=== PATIENT | male | born 1960 | race Caucasian/White ===

== ENCOUNTER → 2018-04-29 09:58 | Outpatient (CLI) | payer MEDICARE, SELFPAY ==
[2018-04-29 11:32] LABS: Hemoglobin A1C% w Est Avg Glu 7.1 % (4.0-6.0); INR 1.1 (0.9-1.3); Prothrombin Time 11.9 SECONDS (10.1-12.7)
[2018-04-29 11:33] LABS: Add Manual Diff / Slide Review NO; Basophils Percent Auto 0.7 % (0-2); Eosinophils Percent Auto 2.4 % (2-4); Hematocrit 45.1 % (41-53); Hemoglobin 15.8 g/dL (13.5-17.5); Lymphocytes Percent Auto 17.6 % (25-40); Mean Corpuscular HGB Conc 35.1 % (30-36); Mean Corpuscular Hemoglobin 36.2 PG (26-34); Mean Corpuscular Volume 103.3 fL (80-100); Monocytes Percent Auto 10.4 % (3-14); Neutrophils Absolute Auto 4500 /uL (3000-5900); Neutrophils Percent Auto 68.9 % (50-75); Platelet Count 235 X10^3/uL (150-400); Red Blood Cell Count 4.37 X10^6/uL (4.5-5.9); Red Cell Distribution Width 13.1 % (11.6-14.8); White Blood Cell Count 6.6 X10^3/uL (4.5-11.0)
[2018-04-29 11:38] LABS: Alanine Aminotransferase 75 IU/L (21-72); Albumin 4.4 g/dL (3.5-5.0); Albumin Globulin Ratio 1.4 (1.0-2.8); Alkaline Phosphatase 113 U/L (38-126); Aspartate Aminotransferase 67 IU/L (17-59); BUN Creatinine Ratio 23.3 (6-22); Bilirubin Total 0.5 mg/dL (0.2-1.3); Blood Urea Nitrogen 14 mg/dL (9-20); Calcium 10.2 mg/dL (8.4-10.2); Carbon Dioxide 33 mmol/L (22-32); Chloride 102 mmol/L (98-107); Estimated Glomerular Filt Rate > 60.0 mL/min (>60); Globulin 3.1 g/dL (1.7-4.1); Glucose 137 mg/dL (70-100); HEMOLYSIS < 15 (0-50); Potassium 4.2 mmol/L (3.4-5.1); Sodium 143 mmol/L (137-145); Total Protein 7.5 g/dL (6.3-8.2)
== END ==
PROVIDERS: PCP Family Medicine; Visit Provider Family Medicine
DX: E11.9 Type 2 diabetes mellitus without complications (principal); F10.20 Alcohol dependence, uncomplicated
CPT/HCPCS: 36415; 80053; 83036; 85025; 85610

== ENCOUNTER → 2018-07-28 11:32 | Outpatient (CLI) | payer MEDICARE, MEDICAID, SELFPAY ==
[2018-07-28 12:59] LABS: Hemoglobin A1C% w Est Avg Glu 6.5 % (4.0-6.0)
[2018-07-28 13:11] LABS: Alanine Aminotransferase 56 IU/L (21-72); Albumin 4.2 g/dL (3.5-5.0); Albumin Globulin Ratio 1.5 (1.0-2.8); Alkaline Phosphatase 93 U/L (38-126); Aspartate Aminotransferase 56 IU/L (17-59); BUN Creatinine Ratio 25.7 (6-22); Bilirubin Total 0.6 mg/dL (0.2-1.3); Blood Urea Nitrogen 18 mg/dL (9-20); Calcium 10.4 mg/dL (8.4-10.2); Carbon Dioxide 32 mmol/L (22-32); Chloride 104 mmol/L (98-107); Estimated Glomerular Filt Rate > 60.0 mL/min (>60); Globulin 2.8 g/dL (1.7-4.1); Glucose 200 mg/dL (80-110); HEMOLYSIS < 15 (0-50); Sodium 147 mmol/L (137-145)
[2018-07-28 13:15] LABS: Potassium 5.5 mmol/L (3.4-5.1)
[2018-07-28 13:22] LABS: Creatinine Urine Random 202.4 mg/dL
[2018-07-28 13:26] LABS: Microalbumi Creatinin Ratio Ur 10.3 ug/mg CR (<30); Microalbumin Urine Random 2.1 mg/dL (0-1.6)
== END ==
PROVIDERS: Visit Provider Family Medicine
DX: E11.9 Type 2 diabetes mellitus without complications (principal)
CPT/HCPCS: 36415; 80053; 82043; 82570; 83036

== ENCOUNTER → 2018-08-04 11:02 | Outpatient (CLI) | payer MEDICARE, MEDICAID, SELFPAY ==
[2018-08-04 12:19] LABS: BUN Creatinine Ratio 24.3 (6-22); Blood Urea Nitrogen 17 mg/dL (9-20); Calcium 9.6 mg/dL (8.4-10.2); Carbon Dioxide 32 mmol/L (22-32); Chloride 102 mmol/L (98-107); Estimated Glomerular Filt Rate > 60.0 mL/min (>60); Glucose 210 mg/dL (80-110); HEMOLYSIS < 15 (0-50); Potassium 4.6 mmol/L (3.4-5.1); Sodium 141 mmol/L (137-145)
== END ==
PROVIDERS: Visit Provider Family Medicine
DX: E11.9 Type 2 diabetes mellitus without complications (principal); I10 Essential (primary) hypertension
CPT/HCPCS: 36415; 80048

== ENCOUNTER → 2019-02-09 11:10 | Outpatient (CLI) | payer MEDICARE, SELFPAY ==
[2019-02-09 11:59] LABS: Add Manual Diff / Slide Review NO; Basophils Absolute Auto 0 /uL (0-100); Basophils Percent Auto 0.7 % (0-2); Eosinophils Absolute Auto 100 /uL (0-450); Eosinophils Percent Auto 1.8 % (2-4); Hematocrit 46.3 % (41-53); Hemoglobin 15.8 g/dL (13.5-17.5); Lymphocytes Absolute Auto 1200 /uL (1100-4500); Lymphocytes Percent Auto 20.6 % (25-40); Mean Corpuscular Hemoglobin 34.5 PG (26-34); Mean Corpuscular Volume 101.3 fL (80-100); Monocytes Absolute Auto 500 /uL (0-900); Monocytes Percent Auto 9.1 % (3-14); Neutrophils Absolute Auto 3800 /uL (1500-7000); Neutrophils Percent Auto 67.8 % (50-75); Platelet Count 245 X10^3/uL (150-400); Red Blood Cell Count 4.57 X10^6/uL (4.5-5.9); Red Cell Distribution Width 13.2 % (11.6-14.8); White Blood Cell Count 5.7 X10^3/uL (4.5-11.0)
[2019-02-09 12:00] LABS: INR 1.1 (0.9-1.3); Prothrombin Time 12.2 SECONDS (10.1-12.7)
[2019-02-09 12:03] LABS: Hemoglobin A1C% w Est Avg Glu 7.1 % (4.0-6.0)
[2019-02-09 12:52] LABS: Creatinine Urine Random 293.6 mg/dL
[2019-02-09 12:57] LABS: Microalbumi Creatinin Ratio Ur 10.2 ug/mg CR (<30)
[2019-02-09 12:59] LABS: Alanine Aminotransferase 44 IU/L (21-72); Albumin 4.2 g/dL (3.5-5.0); Albumin Globulin Ratio 1.4 (1.0-2.8); Alkaline Phosphatase 109 U/L (38-126); Aspartate Aminotransferase 45 IU/L (17-59); BUN Creatinine Ratio 18.6 (6-22); Bilirubin Total 0.4 mg/dL (0.2-1.3); Blood Urea Nitrogen 13 mg/dL (9-20); Calcium 9.9 mg/dL (8.4-10.2); Carbon Dioxide 31 mmol/L (22-32); Chloride 102 mmol/L (98-107); Cholesterol 214 mg/dL (140-199); Estimated Glomerular Filt Rate > 60.0 mL/min (>60); Glucose 165 mg/dL (80-110); HDL Cholesterol 70 mg/dL (40-60); HEMOLYSIS < 15 (0-50); LDL Cholesterol Calculated 117 mg/dL (<100); Potassium 5.1 mmol/L (3.4-5.1); Sodium 140 mmol/L (137-145); Total Protein 7.2 g/dL (6.3-8.2); Triglycerides 137 mg/dL (35-150)
== END ==
PROVIDERS: PCP Family Medicine; Visit Provider Family Medicine
DX: R14.0 Abdominal distension (gaseous) (principal); E11.9 Type 2 diabetes mellitus without complications; E78.5 Hyperlipidemia, unspecified; I10 Essential (primary) hypertension; J44.9 Chronic obstructive pulmonary disease, unspecified
CPT/HCPCS: 36415; 80053; 80061; 82043; 82570; 83036; 85025; 85610

== ENCOUNTER → 2019-02-17 09:37 | Outpatient (CLI) | payer MEDICARE, SELFPAY ==
--- NOTE | 2019-02-17 09:40 | DI.US.S_ITS ---
PROCEDURE: US ABDOMEN COMPLETE INDICATIONS: ABDOMINAL DISTENTION TECHNIQUE: Real-time scanning was performed of the abdominal and retroperitoneal organs, with image documentation. COMPARISON: [facility], CR, ABDOMEN 2 VIEW, 04/23/2016, 10:47. [facility], CT, KIDNEY/ URETER/BLADDER, 06/09/2014, 7:51. [facility], US, ABDOMEN LIMITED, 02/08/2016, 14:00. FINDINGS: Liver: The liver demonstrates normal size. The liver demonstrates generalized increased echogenicity. This decreases ultrasound sensitivity for detection of hepatic masses. Gallbladder: There is a 5-6 mm non-mobile stone seen within the gallbladder neck. The gallbladder wall is not thickened, measuring 3 mm or less. No specific pericholecystic fluid is seen. The sonographic Martinez sign is negative. Biliary ducts: Intrahepatic bile ducts are non-dilated. Extrahepatic bile duct caliber measures 6.7 mm. Normal is 6-7 mm or less in diameter, or 10 mm or less post-cholecystectomy. Pancreas: Not seen, obscured by overlying bowel gas. Spleen: Spleen is normal in size and homogeneous in echotexture. Kidneys: Kidneys are normal in size and echotexture. Right kidney measures 12 cm long; left kidney measures 12 cm long. No hydronephrosis or nephrolithiasis. No solid masses. Aorta: Not seen, obscured by overlying bowel gas. Iliacs: Not seen, obscured by overlying bowel gas. IVC: Intrahepatic inferior vena cava is patent. Miscellaneous: No free abdominal fluid. Study limited by bowel gas. IMPRESSION: Non-mobile gallstone seen within the gallbladder neck, without additional sonographic signs of cholecystitis. Please correlate with physical examination findings, patient presentation, and laboratory values. No biliary dilatation is seen. The liver demonstrates increased echogenicity. This finding is nonspecific, yet it is most commonly attributed to fatty infiltration. Dictated by: Zaki Camacho M.D. on 02/17/2019 at 11:57 Approved by: Zaki Camacho M.D. on 02/17/2019 at 11:58
== END ==
PROVIDERS: PCP Family Medicine; Visit Provider Family Medicine
DX: R14.0 Abdominal distension (gaseous) (principal); K80.20 Calculus of gallbladder without cholecystitis without obstruction
CPT/HCPCS: 76700

== ENCOUNTER → 2019-05-19 10:17 | Outpatient (CLI) | payer MEDICARE, SELFPAY ==
[2019-05-19 11:18] LABS: Hemoglobin A1C% w Est Avg Glu 6.8 % (4.0-6.0)
== END ==
PROVIDERS: PCP Family Medicine; Visit Provider Family Medicine
DX: E11.9 Type 2 diabetes mellitus without complications (principal)
CPT/HCPCS: 36415; 83036

== ENCOUNTER → 2019-11-10 11:58 | Outpatient (CLI) | payer MEDICARE, MEDICAID, SELFPAY ==
[2019-11-10 12:28] LABS: Hemoglobin A1C% w Est Avg Glu 6.7 % (4.0-6.0)
[2019-11-10 12:32] LABS: BUN Creatinine Ratio 42.9 (6-22); Blood Urea Nitrogen 30 mg/dL (9-20); Calcium 9.7 mg/dL (8.4-10.2); Carbon Dioxide 27 mmol/L (22-32); Chloride 102 mmol/L (98-107); Estimated Glomerular Filt Rate > 60.0 mL/min (>60); Glucose 131 mg/dL (80-110); HEMOLYSIS < 15 (0-50); Potassium 4.8 mmol/L (3.4-5.1); Sodium 142 mmol/L (137-145)
== END ==
PROVIDERS: PCP Family Medicine; Visit Provider Family Medicine
DX: E11.9 Type 2 diabetes mellitus without complications (principal)
CPT/HCPCS: 36415; 80048; 83036

== ENCOUNTER → 2019-11-17 10:34 | Outpatient (CLI) | payer MEDICARE, SELFPAY ==
--- NOTE | 2019-11-17 10:36 | DI.RAD.S_ITS ---
PROCEDURE: XR CHEST 2V INDICATIONS: COPD exacerbation TECHNIQUE: 2 views of the chest were acquired. COMPARISON: [facility], , ABDOMEN 2 VIEW, 04/23/2016, 10:47. [facility], , CHEST 2 VIEW, 12/29/2014, 15:48. FINDINGS: Surgical changes and devices: None. Lungs and pleura: Ill-defined patchy consolidative opacities project in the retrocardiac region left lung base. No pleural effusions or pneumothorax. Mediastinum: Mediastinal contours are normal. Heart size is normal. Bones and chest wall: No suspicious bony abnormalities. Soft tissues appear unremarkable. IMPRESSION: Ill-defined left basilar patchy consolidative opacity suggestive of aspiration and/or pneumonia.Recommend radiographic followup to document resolution after treatment to exclude abnormal soft tissue. Dictated by: Allen Osorio M.D. on 11/17/2019 at 14:11 Approved by: Allen Osorio M.D. on 11/17/2019 at 14:13
[2019-11-17 11:55] LABS: Add Manual Diff / Slide Review NO; Basophils Absolute Auto 0 /uL (0-100); Basophils Percent Auto 0.1 % (0-2); Eosinophils Absolute Auto 0 /uL (0-450); Eosinophils Percent Auto 0.3 % (2-4); Hematocrit 43.4 % (41-53); Hemoglobin 15.1 g/dL (13.5-17.5); Lymphocytes Absolute Auto 900 /uL (1100-4500); Lymphocytes Percent Auto 7.6 % (25-40); Mean Corpuscular HGB Conc 34.8 % (30-36); Mean Corpuscular Hemoglobin 35.2 PG (26-34); Mean Corpuscular Volume 101.3 fL (80-100); Monocytes Absolute Auto 800 /uL (0-900); Monocytes Percent Auto 6.9 % (3-14); Neutrophils Absolute Auto 9700 /uL (1500-7000); Neutrophils Percent Auto 85.1 % (50-75); Platelet Count 235 X10^3/uL (150-400); Red Blood Cell Count 4.28 X10^6/uL (4.5-5.9); Red Cell Distribution Width 13.9 % (11.6-14.8); White Blood Cell Count 11.4 X10^3/uL (4.5-11.0)
[2019-11-17 12:19] LABS: B Type Natriuretic Peptide < 100 (<100)
[2019-11-17 12:32] LABS: Alanine Aminotransferase 117 IU/L (<50); Albumin 3.9 g/dL (3.5-5.0); Albumin Globulin Ratio 1.2 (1.0-2.8); Alkaline Phosphatase 146 U/L (38-126); Aspartate Aminotransferase 157 IU/L (17-59); BUN Creatinine Ratio 28.6 (6-22); Bilirubin Total 0.9 mg/dL (0.2-1.3); Blood Urea Nitrogen 20 mg/dL (9-20); Carbon Dioxide 30 mmol/L (22-32); Chloride 100 mmol/L (98-107); Estimated Glomerular Filt Rate > 60.0 mL/min (>60); Globulin 3.2 g/dL (1.7-4.1); Glucose 194 mg/dL (80-110); HEMOLYSIS < 15 (0-50); Potassium 4.7 mmol/L (3.4-5.1); Sodium 137 mmol/L (137-145); Total Protein 7.1 g/dL (6.3-8.2)
== END ==
PROVIDERS: PCP Family Medicine; Visit Provider Family Medicine
DX: J44.1 Chronic obstructive pulmonary disease with (acute) exacerbation (principal); R05 Cough; R60.0 Localized edema
CPT/HCPCS: 36415; 71046; 80053; 83880; 85025

== ENCOUNTER 2019-11-27 10:07 | Emergency (ER) | payer MEDICARE, MEDICAID, SELFPAY ==
--- NOTE | 2019-11-27 10:18 | ED_ITS ---
HPI - Abdominal Pain General Chief Complaint: Shortness of Breath/Dyspnea Stated Complaint: breathing problems Time Seen by Provider: 11/27/19 10:09 Source: patient and old records reviewed Mode of arrival: Ambulatory Limitations: no limitations History of Present Illness HPI narrative: Patient is a 59-year-old male with history of alcoholism and COPD presenting with nausea abdominal pain. He has recently been treated for COPD exacerbation by PCP 1st on November 10 he was placed on prednisone and Levaquin for 5 days. He was seen again on November 17 he was not feeling any better he was persistently wheezing all x-ray looked like he may have pneumonia. He has significant decreased appetite and loss of weight. He was evaluated for 3rd time by PCP who sent him to the ER for further evaluation with worsening abdominal pain. He says every morning he wakes up he feels nauseous he actually isn't vomiting he has diffuse abdominal discomfort he had a recent breathing treatment just prior to arrival he has some chest discomfort but overall does not feel any short of breath. He admits to drinking alcohol whiskey 5 oz x2 each night MD complaint: abdominal pain Onset (ago): day(s) Pain Consistency: constant Location: diffuse Severity: moderate Quality: cramping Radiation: none Migration to: no migration Relieving factors: nothing Exacerbating factors: nothing Related Data Previous Rx's Medication Instructions Recorded aspirin 81 mg PO QDAY #90 ctb 12/17/16 [MENS DEPENDS PULL UP] ea SEE INSTRUCTIONS #240 12/26/16 insulin glargine 100 unit/mL (3 30 unit SUBCUT DAILY #10 ml 10/07/18 mL) subcutaneous pen blood sugar diagnostic #100 each 11/03/18 ipratropium 0.5 mg-albuterol 3 mg 3 ml INHALATION QID #360 vial 12/04/18 (2.5 mg base)/3 mL nebulization soln gabapentin 300 mg capsule 600 mg PO QHS #60 cap 12/26/18 ipratropium 20 mcg-albuterol 100 1 puff INHALATION QID #4 gram 12/29/18 mcg/actuation mist for inhalation folic acid 1 mg tablet 1 mg PO QDAY #90 tab 02/06/19 glipizide 10 mg tablet 10 mg PO QDAY #90 tab 02/06/19 lisinopril 5 mg tablet 5 mg PO QDAY #90 tab 02/06/19 simvastatin 20 mg tablet 20 mg PO HS #90 tab 03/02/19 fluticasone propionate 110 2 puff INHALATION BID #12 gram 05/01/19 mcg/actuation HFA aerosol inhaler Syringes: Ultra Fine Insulin #100 each 06/30/19 Syringe w/Needle triamcinolone acetonide 0.5 % 1 applictn TOP DAILY #30 gram 08/13/19 topical ointment ondansetron 4 mg PO Q8H PRN #10 tab 11/27/19 Allergies Allergy/AdvReac Type Severity Reaction Status Date / Time [place] And Derivatives Allergy Severe hives Verified 08/13/19 10:30 [CITRUS AND DERIVATIVES] chocolate flavor Allergy Intermediate HIVES Verified 08/13/19 10:30 [CHOCOLATE FLAVOR] codeine [CODEINE] AdvReac Intermediate NAUSEA Verified 08/13/19 10:30 Review of Systems Review of Systems ROS Unobtainable: All systems reviewed & are unremarkable except as noted in HPI and below Eyes Eyes: Denies change in vision, Denies eye discharge, Denies irritation and Denies loss of vision ENT Ears, Nose, Mouth, and Throat: Denies change in voice, Denies neck pain and D enies sore throat Cardiovascular Cardiovascular: Reports as per HPI and Reports dyspnea Respiratory Respiratory: Reports as per HPI, Reports chest congestion, Reports cough, Reports dyspnea, Denies stridor and Denies wheezing Gastrointestinal Gastrointestinal: Reports as per HPI, Reports abdominal pain, Reports change in bowel habits, Denies diarrhea, Reports nausea and Denies vomiting Genitourinary Genitourinary: Denies hematuria, Denies flank pain, Denies urinary incontinence and Denies urinary urgency Musculoskeletal Musculoskeletal: Denies neck pain Integumentary/Breasts Skin/Breast: Denies pruritus, Denies erythema, Denies rash and Denies wounds Neurologic Neurologic: Denies loss of vision Allergic/Immunologic Allergic/Immunologic: Denies wheezing Patient History Social History marital status: unmarried,single number of children: 0 lives independently: Yes education level: high school occupational status: unemployed and disabled Smoking Status: Current every day smoker alcohol intake: current (occasional) substance use type: does not use Smoking Status: Current every day smoker Exam Initial Vital Signs Initial Vital Signs: Vital Signs Temperature 99.5 F 11/27/19 10:28 Pulse Rate 88 11/27/19 10:28 Respiratory Rate 18 11/27/19 10:28 Blood Pressure 146/78 H 11/27/19 10:28 Pulse Oximetry 98 11/27/19 10:28 GENERAL: Well-appearing, well-nourished and in no acute distress. HEENT: Head atraumatic,EOMI, pupils reactive CARDIOVASCULAR: Regular rate and rhythm without murmurs, rubs or gallops. RESPIRATORY: Breath sounds equal bilaterally, no wheezes rales or rhonchi. ABDOMEN: Soft, scar noted from umbilicus to pubic bone distension decreased bowel sounds overall diffuse tenderness no guarding or rebound EXTREMITIES: Normal range of motion, no clubbing or edema. Neurovascularly intact NEUROLOGICAL: Alert and oriented x4.Normal gait and speech. SKIN: Warm, dry, no laceration, no petechiae, no rashes or lesions. Course Orders Ordered: ED Orders 11/27/19 10:22 CT abdomen pelvis w con Stat XR chest 1V Stat EKG-12 Lead Stat 11/27/19 10:24 Complete Blood Count AUTO DIFF Stat Comprehensive Metabolic Panel Stat Lipase Stat NT-proBNP (BNP-Adult 18+) Stat Partial Thromboplastin Time Stat Prothrombin Time INR Stat Troponin & CK Cardiac Panel Stat Discontinued Medications Albuterol/Ipratropium (Duoneb) 3 ml INH NOW ONE Stop: 11/27/19 13:39 Last Admin: 11/27/19 13:50 Dose: 3 ml Documented by: JOVAN Hydroxyzine HCl (Vistaril) 25 mg IM NOW ONE Stop: 11/27/19 13:52 Sodium Chloride (Normal Saline 0.9%) 1,000 mls @ 150 mls/hr IV CONT PIA Last Admin: 11/27/19 11:13 Dose: 150 mls/hr Documented by: MATTHEW Ondansetron HCl (Zofran) 4 mg IV NOW ONE Stop: 11/27/19 10:23 Last Admin: 11/27/19 11:13 Dose: 4 mg Documented by: MATTHEW Ondansetron HCl (Zofran) 4 mg IV NOW ONE Stop: 11/27/19 12:46 Last Admin: 11/27/19 12:55 Dose: 4 mg Documented by: MATTHEW Pantoprazole Sodium (Protonix) 40 mg IV NOW ONE Stop: 11/27/19 12:46 Last Admin: 11/27/19 12:55 Dose: 40 mg Documented by: MATTHEW Vital Signs Vital signs: Vital Signs - 8 hr 11/27/19 10:28 11/27/19 11:09 11/27/19 13:53 Temperature 99.5 F Pulse Rate 88 78 85 Respiratory Rate 18 24 Blood Pressure 146/78 H Blood Pressure [Left Arm] 171/77 H Pulse Oximetry 98 97 98 11/27/19 15:16 Temperature Pulse Rate 79 Respiratory Rate 22 Blood Pressure 173/82 H Blood Pressure [Left Arm] Pulse Oximetry 96 MDM - Abdominal Pain Lab Data Attestation: I reviewed the patient's lab results. Result diagrams: 11/27/19 10:24 11/27/19 10:24 Labs: Lab Results 11/27/19 11/27/19 11/27/19 Range/Units 10:24 10:24 10:24 WBC 4.5 (4.5-11.0) X10^3/uL RBC 4.37 L (4.5-5.9) X10^6/uL Hgb 15.5 (13.5-17.5) g/dL Hct 44.3 (41-53) % MCV 101.5 H (80-100) fL MCH 35.4 H (26-34) PG MCHC 34.9 (30-36) % RDW 14.1 (11.6-14.8) % Plt Count 224 (150-400) X10^3/uL Neut % (Auto) 75.5 H (50-75) % Lymph % (Auto) 10.2 L (25-40) % [place] % (Auto) 12.3 (3-14) % Eos % (Auto) 1.1 L (2-4) % Baso % (Auto) 0.9 (0-2) % Neut # (Auto) 3400 (9146-9298) /uL Lymph # (Auto) 500 L (3174-7507) /uL [place] # (Auto) 600 (0-900) /uL Eos # (Auto) 100 (0-450) /uL Baso # (Auto) 0 (0-100) /uL PT 13.0 H (10.1-12.7) SECONDS INR 1.1 (0.9-1.3) APTT 32 (26.4-36.2) SECONDS Sodium 136 L (137-145) mmol/L Potassium 3.7 (3.4-5.1) mmol/L Chloride 97 L (98-107) mmol/L Carbon Dioxide 29 (22-32) mmol/L BUN 15 (9-20) mg/dL Creatinine 0.70 (0.66-1.25) mg/dL Estimated GFR > 60.0 (>60) mL/min BUN/Creatinine Ratio 21.4 (6-22) Glucose 200 H (80-110) mg/dL Calcium 10.1 (8.4-10.2) mg/dL Total Bilirubin 1.1 (0.2-1.3) mg/dL AST 71 H (17-59) IU/L ALT 47 (<50) IU/L Alkaline Phosphatase 127 H (38-126) U/L Total Creatine Kinase 44 L (55-170) U/L CK-MB (CK-2) TNP CK-MB (CK-2) Rel Index TNP Troponin I < 0.012 (0.01-0.034) ng/mL NT-Pro-B Natriuret Pep 168 H (<125) pg/mL Total Protein 8.0 (6.3-8.2) g/dL Albumin 4.2 (3.5-5.0) g/dL Globulin 3.8 (1.7-4.1) g/dL Albumin/Globulin Ratio 1.1 (1.0-2.8) Lipase 36 (23-300) U/L Imaging Data Chest x-ray: Radiologist's Impression: PROCEDURE: XR CHEST 1V INDICATIONS: cough TECHNIQUE: One view of the chest was acquired. COMPARISON: [facility], , XR CHEST 2V, 11/17/2019, 10:42. FINDINGS: Surgical changes and devices: None. Lungs and pleura: Streaky right basilar opacity. Mediastinum: Mediastinal contours appear normal. Heart size is normal. Bones and chest wall: No suspicious bony lesions. Overlying soft tissues appear unremarkable. IMPRESSION: Streaky right basilar opacity. This could represent atelectasis or developing pneumonia. Dictated by: Pina Simmons M.D. on 11/27/2019 at 10:45 CT scan - abdomen/pelvis: Radiologist's Impression: PROCEDURE: CT ABDOMEN PELVIS W CON INDICATIONS: nausea, ab distention TECHNIQUE: After the administration of intravenous contrast, 5 mm thick sections acquired from the diaphragm to the symphysis. 5 mm coronal and sagittal reformats were acquired. For radiation dose reduction, the following was used: automated exposure control, adjustment of mA and/or kV according to patient size. COMPARISON: [facility], CT, CT ABD PELVIS W CON, 08/24/2016, 13:57. [facility], CT, ABDOMEN/PELVIS WITH CONTRAST, 06/06/2013, 12:59. FINDINGS: Image quality: Excellent. ABDOMEN: Lung bases: Lung bases are clear. Heart size is normal. Solid organs: Liver is normal in size and enhancement. Several punctate calcifications are seen at the posterior superior right hepatic lobe. Gallbladder appears normal. Biliary system is non dilated. Pancreas enhances normally. Spleen is normal in size and enhancement. No adrenal nodules. Kidneys demonstrate normal size and enhancement, without hydronephrosis. Peritoneum and bowel: Bowel loops demonstrate normal wall thickness and caliber. No free fluid or air. No colonic obstipation. Nodes and vessels: No retroperitoneal or mesenteric adenopathy by size criteria. Aorta and inferior vena cava are normal in size. Miscellaneous: No ventral hernias. PELVIS: Genitourinary: Bladder wall thickness is normal. Miscellaneous: No inguinal hernias or adenopathy. Bones: No suspicious bony lesions. No vertebral body compression fractures. IMPRESSION: No intestinal obstruction or perforation found. What appears to be several surgical clips are noted at the transverse colon at approximately the junction of the proximal and middle thirds. No distention before or after this site is found. Postsurgical clips within the pelvis suggest prior prostate resection, now adenopathy or operative complication is found in that area. Dictated by: Frederic Birmingham M.D. on 11/27/2019 at 11:16 ECG Data Attestation: I personally reviewed and interpreted this ECG as follows: Interpretation: Normal sinus rhythm rate 84 p.r. interval 153 QRS 114 acute T C3 [address] elevation depression or T-wave inversion MDM Narrative Medical decision making narrative: Patient has no real respiratory distress. X- ray does show a pneumonia however he has just been on 2 courses of anti on Augmentin. He has no leukocytosis is or fever. CT of the abdomen does not show any abnormality no bowel obstruction. Initially asked patient if he was ready to go he said yes and then immediately started dry heaving. He was given anti nausea medication few doses and was finally able to keep some fluids down. He is prescribed Zofran for home. He feels ready and able to go home. I have called his PCP, who will follow-up with him in office. Discharge Plan Departure Patient Disposition: Home Clinical Impression: Vomiting Qualifiers: Vomiting type: unspecified Vomiting Intractability: non-intractable Nausea presence: with nausea Qualified Code(s): R11.2 - Nausea with vomiting, unspecified Discharge Date/Time: 11/27/19 15:16 Instructions: DI for Vomiting -- Adult Activity Restrictions/Additional Instructions: 1) You have been diagnosed with vomiting 2) What to do: Drink frequent but small amounts of fluids. I recommend Gatorade or a Gatorade-like product, as it has small amounts of suga r and salts that improve fluid retention. 3) Take medications as directed PRESCRIPTION SENT TO [facility] [place] Zofran 4 mg every 8 hours if needed for nausea vomiting 4) Follow up with your primary care provider in 2-3 days [and follow up with ortho, urology etc] 5) Return to ER if you should have any new or worsening symptoms such as, unable to hold down fluids despite use of anti-nausea medications and the small volume oral rehydration strategy. Prescriptions: New ondansetron 4 mg tablet,disintegrating 4 mg PO Q8H PRN (Reason: nausea and vomiting) Qty: 10 RF: 0 No Action triamcinolone acetonide 0.5 % ointment 1 applictn TOP DAILY Qty: 30 RF: 0 aspirin 81 MG tablet,chewable 81 mg PO QDAY Qty: 90 RF: 3 [MENS DEPENDS PULL UP] SEE INSTRUCTIONS Qty: 240 RF: 12 insulin glargine 100 unit/mL (3 mL) insulin pen 30 unit SUBCUT DAILY Qty: 10 RF: 3 (DME) blood sugar diagnostic [True Metrix Glucose Test Strip] strip See Dose Instructions .ROUTE .MEDSUPPLY Qty: 100 RF: 11 ipratropium-albuterol 0.5 mg-3 mg(2.5 mg base)/3 mL solution for nebulization 3 ml INHALATION QID Qty: 360 RF: 4 gabapentin [Neurontin] 300 mg capsule 600 mg PO QHS Qty: 60 RF: 12 Combivent Respimat 20-100 mcg/actuation mist 1 puff Inhalation QID Qty: 4 RF: 12 glipizide [Glucotrol] 10 mg tablet 10 mg PO QDAY Qty: 90 RF: 3 folic acid 1 mg tablet 1 mg PO QDAY Qty: 90 RF: 3 lisinopril 5 mg tablet 5 mg PO QDAY Qty: 90 RF: 3 simvastatin [Zocor] 20 mg tablet 20 mg PO HS Qty: 90 RF: 3 Flovent HFA 110 mcg/actuation HFA aerosol inhaler 2 puff INHALATION BID Qty: 12 RF: 12 (DME) Syringes: Ultra Fine Insulin Syringe w/Needle 0 .Route .MEDSUPPLY Qty: 100 RF: 11 Referrals: Bing Candelaria DO [Primary Care Provider] -
--- NOTE | 2019-11-27 10:22 | DI.CT.S_ITS ---
PROCEDURE: CT ABDOMEN PELVIS W CON INDICATIONS: nausea, ab distention TECHNIQUE: After the administration of intravenous contrast, 5 mm thick sections acquired from the diaphragm to the symphysis. 5 mm coronal and sagittal reformats were acquired. For radiation dose reduction, the following was used: automated exposure control, adjustment of mA and/or kV according to patient size. COMPARISON: [facility], CT, CT ABD PELVIS W CON, 08/24/2016, 13:57. [facility], CT, ABDOMEN/PELVIS WITH CONTRAST, 06/06/2013, 12:59. FINDINGS: Image quality: Excellent. ABDOMEN: Lung bases: Lung bases are clear. Heart size is normal. Solid organs: Liver is normal in size and enhancement. Several punctate calcifications are seen at the posterior superior right hepatic lobe. Gallbladder appears normal. Biliary system is non dilated. Pancreas enhances normally. Spleen is normal in size and enhancement. No adrenal nodules. Kidneys demonstrate normal size and enhancement, without hydronephrosis. Peritoneum and bowel: Bowel loops demonstrate normal wall thickness and caliber. No free fluid or air. No colonic obstipation. Nodes and vessels: No retroperitoneal or mesenteric adenopathy by size criteria. Aorta and inferior vena cava are normal in size. Miscellaneous: No ventral hernias. PELVIS: Genitourinary: Bladder wall thickness is normal. Miscellaneous: No inguinal hernias or adenopathy. Bones: No suspicious bony lesions. No vertebral body compression fractures. IMPRESSION: No intestinal obstruction or perforation found. What appears to be several surgical clips are noted at the transverse colon at approximately the junction of the proximal and middle thirds. No distention before or after this site is found. Postsurgical clips within the pelvis suggest prior prostate resection, now adenopathy or operative complication is found in that area. Dictated by: Frederic Birmingham M.D. on 11/27/2019 at 11:16 Approved by: Frederic Birmingham M.D. on 11/27/2019 at 11:38
--- NOTE | 2019-11-27 10:22 | DI.RAD.S_ITS ---
PROCEDURE: XR CHEST 1V INDICATIONS: cough TECHNIQUE: One view of the chest was acquired. COMPARISON: [facility], CR, XR CHEST 2V, 11/17/2019, 10:42. FINDINGS: Surgical changes and devices: None. Lungs and pleura: Streaky right basilar opacity. Mediastinum: Mediastinal contours appear normal. Heart size is normal. Bones and chest wall: No suspicious bony lesions. Overlying soft tissues appear unremarkable. IMPRESSION: Streaky right basilar opacity. This could represent atelectasis or developing pneumonia. Dictated by: Pina Simmons M.D. on 11/27/2019 at 10:45 Approved by: Pina Simmons M.D. on 11/27/2019 at 10:48
[2019-11-27 10:28] VITALS: BP 146/78; PULSE 88; RESP 18; TEMP 37.5; O2SAT 98; BMI 27.3
[2019-11-27 10:33] LABS: Add Manual Diff / Slide Review NO; Basophils Absolute Auto 0 /uL (0-100); Basophils Percent Auto 0.9 % (0-2); Eosinophils Absolute Auto 100 /uL (0-450); Eosinophils Percent Auto 1.1 % (2-4); Hematocrit 44.3 % (41-53); Hemoglobin 15.5 g/dL (13.5-17.5); Lymphocytes Absolute Auto 500 /uL (1100-4500); Lymphocytes Percent Auto 10.2 % (25-40); Mean Corpuscular HGB Conc 34.9 % (30-36); Mean Corpuscular Hemoglobin 35.4 PG (26-34); Mean Corpuscular Volume 101.5 fL (80-100); Monocytes Absolute Auto 600 /uL (0-900); Monocytes Percent Auto 12.3 % (3-14); Neutrophils Absolute Auto 3400 /uL (1500-7000); Neutrophils Percent Auto 75.5 % (50-75); Platelet Count 224 X10^3/uL (150-400); Red Blood Cell Count 4.37 X10^6/uL (4.5-5.9); Red Cell Distribution Width 14.1 % (11.6-14.8); White Blood Cell Count 4.5 X10^3/uL (4.5-11.0)
[2019-11-27 10:38] LABS: INR 1.1 (0.9-1.3)
[2019-11-27 10:40] LABS: PTT Partial Thromboplastin Tim 32 SECONDS (26.4-36.2)
[2019-11-27 10:45] LABS: Alanine Aminotransferase 47 IU/L (<50); Albumin 4.2 g/dL (3.5-5.0); Albumin Globulin Ratio 1.1 (1.0-2.8); Alkaline Phosphatase 127 U/L (38-126); Aspartate Aminotransferase 71 IU/L (17-59); BUN Creatinine Ratio 21.4 (6-22); Bilirubin Total 1.1 mg/dL (0.2-1.3); Blood Urea Nitrogen 15 mg/dL (9-20); Calcium 10.1 mg/dL (8.4-10.2); Carbon Dioxide 29 mmol/L (22-32); Chloride 97 mmol/L (98-107); Creatine Kinase 44 U/L (55-170); Estimated Glomerular Filt Rate > 60.0 mL/min (>60); Globulin 3.8 g/dL (1.7-4.1); Glucose 200 mg/dL (80-110); HEMOLYSIS < 15 (0-50); Lipase 36 U/L (23-300); Potassium 3.7 mmol/L (3.4-5.1); Sodium 136 mmol/L (137-145)
[2019-11-27 10:56] LABS: NT-proBNP (BNP-Adult 18+) 168 pg/mL (<125); Troponin I < 0.012 ng/mL (0.01-0.034)
[2019-11-27 11:09] VITALS: BP 171/77; PULSE 78; RESP 24; O2SAT 97
[2019-11-27] MEDS: SODIUM CHLORIDE 0.9% 1,000 ML 150 ML IV (11:13)
[2019-11-27] MEDS: ONDANSETRON 4 MG/2 ML INJ IV ×2 (11:13→12:55)
[2019-11-27] MEDS: PANTOPRAZOLE 40 MG VIAL IV (12:55)
[2019-11-27] MEDS: ALBUTEROL/IPRATROPIUM 3 ML AMPUL INH (13:50)
[2019-11-27 13:53] VITALS: PULSE 85; O2SAT 98
[2019-11-27 15:16] VITALS: BP 173/82; PULSE 79; RESP 22; O2SAT 96
--- NOTE | 2019-12-15 11:28 | PC.NURSE ---
Late entry: NS started 11:13 @ 150 cc hour discontinued upon d/c @ 1500. No ill effect.
== END 2019-11-27 15:16 | disposition home or self-care (01) ==
PROVIDERS: Emergency Provider Emergency Medicine; PCP Family Medicine
DX: R11.2 Nausea with vomiting, unspecified (principal); R05 Cough; R10.9 Unspecified abdominal pain; R06.00 Dyspnea, unspecified
CPT/HCPCS: 36415; 71045; 74177; 80053; 82550; 83690; 83880; 84484; 85025; 85610; 85730; 93005; 94640; 96361; 96374; 96375; 96376; 99281; 99284; 99285; C9113; J2405; Q9967

== ENCOUNTER 2019-11-27 18:38 | Emergency (ER) | payer MEDICARE, MEDICAID, SELFPAY ==
[2019-11-27 19:24] VITALS: BP 123/74; PULSE 85; RESP 16; O2SAT 96; BMI 27.3
--- NOTE | 2019-11-27 21:48 | ED_ITS ---
HPI - Nausea/Vomiting/Diarrhea General Chief complaint: Nausea/Vomiting/Diarrhea Stated complaint: WALKING PNEUMONIA GOT WORSE AFTER DISCHARGE Source: patient Mode of arrival: Family Vehicle Limitations: no limitations History of Present Illness HPI Narrative: The patient was never interviewed evaluated or examined by myself. The patient left without being seen or treated. Related Data Previous Rx's Medication Instructions Recorded aspirin 81 mg PO QDAY #90 ctb 12/17/16 [MENS DEPENDS PULL UP] ea SEE INSTRUCTIONS #240 12/26/16 insulin glargine 100 unit/mL (3 30 unit SUBCUT DAILY #10 ml 10/07/18 mL) subcutaneous pen blood sugar diagnostic #100 each 11/03/18 ipratropium 0.5 mg-albuterol 3 mg 3 ml INHALATION QID #360 vial 12/04/18 (2.5 mg base)/3 mL nebulization soln gabapentin 300 mg capsule 600 mg PO QHS #60 cap 12/26/18 ipratropium 20 mcg-albuterol 100 1 puff INHALATION QID #4 gram 12/29/18 mcg/actuation mist for inhalation folic acid 1 mg tablet 1 mg PO QDAY #90 tab 02/06/19 glipizide 10 mg tablet 10 mg PO QDAY #90 tab 02/06/19 lisinopril 5 mg tablet 5 mg PO QDAY #90 tab 02/06/19 simvastatin 20 mg tablet 20 mg PO HS #90 tab 03/02/19 fluticasone propionate 110 2 puff INHALATION BID #12 gram 05/01/19 mcg/actuation HFA aerosol inhaler Syringes: Ultra Fine Insulin #100 each 06/30/19 Syringe w/Needle triamcinolone acetonide 0.5 % 1 applictn TOP DAILY #30 gram 08/13/19 topical ointment ondansetron 4 mg PO Q8H PRN #10 tab 11/27/19 Allergies Allergy/AdvReac Type Severity Reaction Status Date / Time [place] And Derivatives Allergy Severe hives Verified 08/13/19 10:30 [CITRUS AND DERIVATIVES] chocolate flavor Allergy Intermediate HIVES Verified 08/13/19 10:30 [CHOCOLATE FLAVOR] codeine [CODEINE] AdvReac Intermediate NAUSEA Verified 08/13/19 10:30 Patient History Social History marital status: unmarried,single number of children: 0 lives independently: Yes education level: high school occupational status: unemployed and disabled Smoking Status: Current every day smoker alcohol intake: current (occasional) substance use type: does not use Smoking Status: Current every day smoker tobacco type: cigarettes alcohol intake frequency: 0-2 drinks per day Alcohol type: hard liquor Substance Use Type: does not use Exam Initial Vital Signs Initial Vital Signs: Vital Signs Pulse Rate 85 11/27/19 19:24 Respiratory Rate 16 11/27/19 19:24 Blood Pressure 123/74 11/27/19 19:24 Pulse Oximetry 96 11/27/19 19:24 Course Vital Signs Vital signs: Vital Signs - 8 hr 11/27/19 19:24 Pulse Rate 85 Respiratory Rate 16 Blood Pressure 123/74 Pulse Oximetry 96 Discharge Plan Departure Patient Disposition: Left Without Being Seen Clinical Impression: Patient left without being seen Discharge Date/Time: 11/27/19 19:45
== END 2019-11-27 19:45 | disposition left against medical advice (07) ==
PROVIDERS: Emergency Provider Emergency Medicine; PCP Family Medicine
CPT/HCPCS: 99281

== ENCOUNTER → 2019-12-18 09:24 | Outpatient (CLI) | payer MEDICARE, MEDICAID, SELFPAY ==
--- NOTE | 2019-12-18 09:28 | DI.RAD.S_ITS ---
PROCEDURE: XR CHEST 2V INDICATIONS: f/u Pneumonia TECHNIQUE: 2 views of the chest were acquired. COMPARISON: [facility], CT, CT ABD PELVIS W CON, 08/24/2016, 13:57. [facility], CR, CHEST 2 VIEW, 12/29/2014, 15:48. [facility], CT, CT ABDOMEN PELVIS W CON, 11/27/2019, 10:53. [facility], CR, XR CHEST 1V, 11/27/2019, 10:26. [facility], CR, XR CHEST 2V, 11/17/2019, 10:42. FINDINGS: Surgical changes and devices: None. Lungs and pleura: Lungs are mildly abnormal at the left lung base where linear stranding is present, potentially a manifestation of prior pneumonia. No pleural effusions or pneumothorax. Mediastinum: Mediastinal contours are normal. Heart size is normal. Bones and chest wall: No suspicious bony abnormalities. Soft tissues appear unremarkable. IMPRESSION: Persistent linear stranding left lower lung, not present in December of 2014, but potentially a manifestation of scarring from prior inflammatory events. If clinically desired a CT scan without contrast could be obtained through the lungs for more accurate assessment. Alternatively, followup chest plain film frontal view in 6 weeks may be warranted. Dictated by: Frederic Birmingham M.D. on 12/18/2019 at 10:56 Approved by: Frederic Birmingham M.D. on 12/18/2019 at 11:00
[2019-12-18 10:34] LABS: Add Manual Diff / Slide Review NO; Basophils Absolute Auto 0 /uL (0-100); Basophils Percent Auto 0.5 % (0-2); Eosinophils Absolute Auto 100 /uL (0-450); Eosinophils Percent Auto 1.4 % (2-4); Hematocrit 46.2 % (41-53); Lymphocytes Absolute Auto 900 /uL (1100-4500); Lymphocytes Percent Auto 10.9 % (25-40); Mean Corpuscular HGB Conc 34.6 % (30-36); Mean Corpuscular Hemoglobin 34.8 PG (26-34); Mean Corpuscular Volume 100.6 fL (80-100); Monocytes Absolute Auto 800 /uL (0-900); Monocytes Percent Auto 9.7 % (3-14); Neutrophils Absolute Auto 6100 /uL (1500-7000); Neutrophils Percent Auto 77.5 % (50-75); Platelet Count 258 X10^3/uL (150-400); Red Blood Cell Count 4.59 X10^6/uL (4.5-5.9); Red Cell Distribution Width 14.2 % (11.6-14.8); White Blood Cell Count 7.9 X10^3/uL (4.5-11.0)
[2019-12-18 10:49] LABS: Alanine Aminotransferase 58 IU/L (<50); Albumin 3.9 g/dL (3.5-5.0); Albumin Globulin Ratio 1.2 (1.0-2.8); Alkaline Phosphatase 139 U/L (38-126); Aspartate Aminotransferase 73 IU/L (17-59); BUN Creatinine Ratio 18.6 (6-22); Bilirubin Total 0.9 mg/dL (0.2-1.3); Blood Urea Nitrogen 13 mg/dL (9-20); Calcium 10.6 mg/dL (8.4-10.2); Carbon Dioxide 29 mmol/L (22-32); Chloride 98 mmol/L (98-107); Estimated Glomerular Filt Rate > 60.0 mL/min (>60); Globulin 3.3 g/dL (1.7-4.1); Glucose 200 mg/dL (80-110); HEMOLYSIS < 15 (0-50); Potassium 4.3 mmol/L (3.4-5.1); Sodium 137 mmol/L (137-145); Total Protein 7.2 g/dL (6.3-8.2)
== END ==
PROVIDERS: PCP Family Medicine; Referring Provider Family Medicine; Visit Provider Family Medicine
DX: J18.9 Pneumonia, unspecified organism (principal); F10.20 Alcohol dependence, uncomplicated
CPT/HCPCS: 36415; 71046; 80053; 85025

== ENCOUNTER → 2020-01-26 10:22 | Outpatient (CLI) | payer MEDICARE, MEDICAID, SELFPAY ==
--- NOTE | 2020-01-26 10:24 | DI.RAD.S_ITS ---
PROCEDURE: XR CHEST 2V INDICATIONS: follow up left infiltrate TECHNIQUE: 2 views of the chest were acquired. COMPARISON: [facility], CT, CT ABDOMEN PELVIS W CON, 11/27/2019, 10:53. [facility], CR, XR CHEST 1V, 11/27/2019, 10:26. [facility], CR, XR CHEST 2V, 12/18/2019, 9:28. FINDINGS: Surgical changes and devices: None. Lungs and pleura: Lungs are clear. No pleural effusions or pneumothorax. Mediastinum: Mediastinal contours are normal. Heart size is normal. Bones and chest wall: No suspicious bony abnormalities. Age-appropriate bony degenerative changes are seen. Soft tissues appear unremarkable. IMPRESSION: The previously seen left lower lung infiltrate is no longer definitely seen. Dictated by: Zaki Camacho M.D. on 01/26/2020 at 10:12 Approved by: Zaki Camacho M.D. on 01/26/2020 at 10:13
== END ==
PROVIDERS: PCP Family Medicine; Referring Provider Family Medicine; Visit Provider Family Medicine
DX: J18.9 Pneumonia, unspecified organism (principal)
CPT/HCPCS: 71046

== ENCOUNTER → 2020-02-04 12:37 | Outpatient (CLI) | payer MEDICARE, MEDICAID, SELFPAY ==
[2020-02-04 12:53] LABS: Add Manual Diff / Slide Review NO; Basophils Absolute Auto 0 /uL (0-100); Basophils Percent Auto 0.6 % (0-2); Eosinophils Absolute Auto 100 /uL (0-450); Eosinophils Percent Auto 0.9 % (2-4); Hematocrit 43.7 % (41-53); Hemoglobin 15.1 g/dL (13.5-17.5); Lymphocytes Absolute Auto 1000 /uL (1100-4500); Lymphocytes Percent Auto 17.1 % (25-40); Mean Corpuscular HGB Conc 34.6 % (30-36); Mean Corpuscular Hemoglobin 38.9 PG (26-34); Mean Corpuscular Volume 112.2 fL (80-100); Monocytes Absolute Auto 600 /uL (0-900); Neutrophils Absolute Auto 4300 /uL (1500-7000); Neutrophils Percent Auto 71.4 % (50-75); Platelet Count 204 X10^3/uL (150-400); Red Blood Cell Count 3.89 X10^6/uL (4.5-5.9); Red Cell Distribution Width 20.7 % (11.6-14.8)
[2020-02-04 13:00] LABS: Hemoglobin A1C% w Est Avg Glu 9.1 % (4.0-6.0)
[2020-02-04 13:03] LABS: Alanine Aminotransferase 39 IU/L (<50); Albumin 4.1 g/dL (3.5-5.0); Albumin Globulin Ratio 1.2 (1.0-2.8); Alkaline Phosphatase 118 U/L (38-126); Aspartate Aminotransferase 83 IU/L (17-59); BUN Creatinine Ratio 21.3 (6-22); Bilirubin Total 0.6 mg/dL (0.2-1.3); Blood Urea Nitrogen 13 mg/dL (9-20); Calcium 9.9 mg/dL (8.4-10.2); Carbon Dioxide 28 mmol/L (22-32); Chloride 100 mmol/L (98-107); Estimated Glomerular Filt Rate > 60.0 mL/min (>60); Globulin 3.5 g/dL (1.7-4.1); Glucose 246 mg/dL (80-110); HEMOLYSIS < 15 (0-50); Potassium 4.2 mmol/L (3.4-5.1); Sodium 137 mmol/L (137-145); Total Protein 7.6 g/dL (6.3-8.2)
[2020-02-04 13:13] LABS: Anisocytosis 2+; Macrocytosis 1+
[2020-02-04 13:35] LABS: Prostate Specific Antigen < 0.064 ng/mL (0.10-4.00)
== END ==
PROVIDERS: PCP Family Medicine; Referring Provider Family Medicine; Visit Provider Family Medicine
DX: E11.8 Type 2 diabetes mellitus with unspecified complications (principal); F10.20 Alcohol dependence, uncomplicated; Z85.46 Personal history of malignant neoplasm of prostate
CPT/HCPCS: 36415; 80053; 83036; 84153; 85025

== ENCOUNTER → 2020-04-14 11:13 | Outpatient (CLI) | payer MEDICARE, MEDICAID, SELFPAY ==
[2020-04-14 12:27] LABS: Hemoglobin A1C% w Est Avg Glu 8.6 % (4.0-6.0)
== END ==
PROVIDERS: PCP Family Medicine; Referring Provider Family Medicine; Visit Provider Family Medicine
DX: E11.8 Type 2 diabetes mellitus with unspecified complications (principal)
CPT/HCPCS: 36415; 83036

== ENCOUNTER 2020-05-23 12:12 | Observation (INO) | payer MEDICARE, MEDICAID, SELFPAY ==
[2020-05-23] VITALS (12 sets, daily range): BP systolic 114–150; BP diastolic 70–97; PULSE 58–110; RESP 16–30; TEMP 37.1–37.3; O2SAT 94–98; BMI 28.5
--- NOTE | 2020-05-23 12:17 | DI.RAD.S_ITS ---
PROCEDURE: XR CHEST 2V INDICATIONS: sob TECHNIQUE: 2 views of the chest were acquired. COMPARISON: [facility], , CHEST 2 VIEW, 12/29/2014, 15:48. [facility], , XR CHEST 2V, 11/17/2019, 10:42. [facility], CR, XR CHEST 2V, 12/18/2019, 9:28. [facility], , XR CHEST 2V, 01/26/2020, 10:19. FINDINGS: Surgical changes and devices: None. Lungs and pleura: The region of the lungs is similar to the previous exam with extensive interstitial prominence within the central aspect of the lungs that is more pronounced on the left when compared to the right. This overall pattern of interstitial markings is similar to examinations dating back to 2015 and a may represent chronic interstitial change. No definite consolidation is evident. There is no effusion or pneumothorax. Mediastinum: Mediastinal contours are normal. Heart size is normal. There is aortic atherosclerosis. Bones and chest wall: No suspicious bony abnormalities. Soft tissues appear unremarkable. IMPRESSION: No acute cardiopulmonary process is evident. Dictated by: Mika Alvarez M.D. on 05/23/2020 at 11:48 Approved by: Mika Alvarez M.D. on 05/23/2020 at 11:50
--- NOTE | 2020-05-23 12:26 | ED.SOB ---
HPI - SOB/Dyspnea General Chief Complaint: Shortness of Breath/Dyspnea Stated Complaint: SOB Time Seen by Provider: 05/23/20 12:16 Source: EMS Mode of arrival: EMS Limitations: no limitations History of Present Illness HPI Narrative: Patient is 59-year-old male with history of COPD presenting with cough and shortness of breath which got worse today. He did use his extremely spacer with inhaler and does feel better. He is coughing up green sputum and feels like he is short of breath with exertion this feels like his COPD. He feels like his chest is tight he denies any actual chest pain or palpitation. MD Complaint: shortness of breath and cough Related Data Previous Rx's Medication Instructions Recorded aspirin 81 mg PO QDAY #90 ctb 12/17/16 ipratropium 0.5 mg-albuterol 3 mg 3 ml INHALATION QID #360 vial 12/04/18 (2.5 mg base)/3 mL nebulization soln gabapentin 300 mg capsule 600 mg PO QHS #60 cap 12/26/18 folic acid 1 mg tablet 1 mg PO QDAY #90 tab 02/06/19 glipizide 10 mg tablet 10 mg PO QDAY #90 tab 02/06/19 lisinopril 5 mg tablet 5 mg PO QDAY #90 tab 02/06/19 simvastatin 20 mg tablet 20 mg PO HS #90 tab 03/02/19 ipratropium 20 mcg-albuterol 100 1 puff INHALATION QID #4 gram 02/01/20 mcg/actuation mist for inhalation insulin glargine 100 unit/mL (3 35 unit SUBCUT DAILY #10 ml 03/03/20 mL) subcutaneous pen fluticasone propionate 230 2 puff INHALATION BID #12 gram 05/09/20 mcg-salmeterol 21 mcg/actuation HFA inhaler Allergies Allergy/AdvReac Type Severity Reaction Status Date / Time [place] [employer] Derivatives Allergy Severe hives Verified 01/26/20 09:21 [CITRUS AND DERIVATIVES] chocolate flavor Allergy Intermediate HIVES Verified 01/26/20 09:21 [CHOCOLATE FLAVOR] codeine [CODEINE] AdvReac Intermediate NAUSEA Verified 01/26/20 09:21 Review of Systems Review of Systems ROS Unobtainable: All systems reviewed & are unremarkable except as noted in HPI and below Constitutional Constitutional: Denies chills, Denies fever(s), Denies lethargy and Denies weakness Eyes Eyes: Denies change in vision, Denies eye discharge, Denies irritation and Denies loss of vision Cardiovascular Cardiovascular: Reports as per HPI, Denies chest pain, Denies irregular heart rhythm, Denies lightheadedness, Denies palpitations, Reports dyspnea and Denies orthopnea Respiratory Respiratory: Denies chest congestion, Reports excessive phlegm production and Reports dyspnea Gastrointestinal Gastrointestinal: Denies abdominal pain, Denies change in bowel habits, Denies diarrhea, Denies nausea and Denies vomiting Integumentary/Breasts Skin/Breast: Denies pruritus, Denies erythema, Denies rash and Denies wounds Neurologic Neurologic: Denies loss of vision and Denies weakness Endocrine Endocrine: Denies palpitations Patient History Medical History (Updated 05/23/20 @ 15:02 by Roxana Eden DO) Alcoholism (Chronic) C7 radiculopathy (Chronic) Colon polyps (Resolved) Diabetes mellitus type 2, insulin dependent (Chronic) Diabetic neuropathy (Acute) Type 2 diabetes mellitus with complications (Acute) Surgical History History of partial colectomy (Resolved) History of prostatectomy (Resolved) S/P hernia repair (Resolved) Family History Mother Colon cancer Social History marital status: unmarried,single number of children: 0 household members: family lives independently: Yes education level: high school occupational status: unemployed and disabled Smoking Status: Current every day smoker alcohol intake: current substance use type: does not use Smoking Status: Current every day smoker tobacco type: cigarettes alcohol intake frequency: 0-2 drinks per day Alcohol type: hard liquor Substance Use Type: does not use Exam Narrative Exam Narrative: GENERAL: Chronically ill discharge old male HEENT: Head atraumatic,EOMI, pupils reactive, face symmetric, [moist] mucous membranes CARDIOVASCULAR: Regular rate and rhythm without murmurs, rubs or gallops. RESPIRATORY: Breath sounds equal bilaterally, slight wheezing ABDOMEN: Soft, nontender. Normoactive bowel sounds all 4 quadrants. No guarding or rebound. EXTREMITIES: Normal range of motion, no clubbing or edema. Neurovascularly intact NEUROLOGICAL: Alert and oriented x4.Normal gait and speech SKIN: Wound noted on right foot with some mild erythema Initial Vital Signs Initial Vital Signs: Vital Signs Temperature 99.2 F 05/23/20 12:17 Pulse Rate 104 H 05/23/20 12:17 Respiratory Rate 25 H 05/23/20 12:17 Blood Pressure 146/75 H 05/23/20 12:17 Pulse Oximetry 97 05/23/20 12:17 Course Orders Ordered: ED Orders 05/23/20 12:17 Consult to Respiratory Therapy Evaluate & Treat XR chest 2V Stat EKG-12 Lead Stat 05/23/20 12:28 Complete Blood Count AUTO DIFF Stat Comprehensive Metabolic Panel Stat Lactate (Lactic Acid) Stat Magnesium Stat NT-proBNP (BNP-Adult 18+) Stat Procalcitonin Stat Troponin & CK Cardiac Panel Stat 05/23/20 13:10 Blood Culture Stat Acetaminophen (Tylenol) 650 mg PO Q6HR PRN PRN Reason: Fever/Mild Pain (1-3) Albuterol (Ventolin) 2.5 mg INH [id number] PRN PRN Reason: Shortness Of Breath Albuterol/Ipratropium (Duoneb) 3 ml INH RTQID [facility] Last Admin: 05/23/20 17:47 Dose: 3 ml Documented by: RRHOWIETO Aspirin (Aspirin Chew) 81 mg PO DAILY [facility] Budesonide (Pulmicort) 0.5 mg INH RTBID [facility] Last Admin: 05/23/20 17:47 Dose: 0.5 mg Documented by: RRALSTO Chlordiazepoxide HCl (Librium) 25 mg PO TID [facility] Dextrose (D50w) 25 gm IV PRN PRN PRN Reason: Hypoglycemia Doxycycline Hyclate (Vibramycin) 100 mg PO BID [facility] Enoxaparin Sodium (Lovenox) 40 mg SUBCUT DAILY [facility] Folic Acid (Folic Acid) 1 mg PO DAILY [facility] Gabapentin (Neurontin) 600 mg PO BEDTIME [facility] Guaifenesin (Mucinex) 600 mg PO BID [facility] Sodium Chloride (Normal Saline 0.9%) 1,000 mls @ 100 mls/hr IV CONT [facility] Last Admin: 05/23/20 16:24 Dose: 100 mls/hr Documented by: PARAMJIT Insulin Aspart (Novolog Flexpen) 0 unit SUBCUT ACHS [facility]; Protocol Last Admin: 05/23/20 16:58 Dose: Not Given Documented by: KKNOTT Insulin Glargine (Lantus Solostar (Pen)) 35 unit SUBCUT DAILY [facility] Lisinopril (Zestril) 5 mg PO DAILY [facility] Lorazepam (Ativan) 0 mg IV CIWAPRN PRN; Protocol PRN Reason: Alcohol Withdrawal Last Admin: 05/23/20 18:22 Dose: 1 mg Documented by: PARAMJIT Lorazepam (Ativan) 0 mg PO CIWAPRN PRN; Protocol PRN Reason: Alcohol Withdrawal Multivitamins (Tab-A-Shira) 1 tab PO DAILY [facility] Nicotine (Nicoderm) 21 mg TOP DAILY [facility] Ondansetron HCl (Zofran) 4 mg IV Q4HR PRN PRN Reason: Nausea And Vomiting Prednisone (Deltasone) 40 mg PO DAILY [facility] Stop: 05/28/20 08:59 Simvastatin (Zocor) 20 mg PO BEDTIME [facility] Thiamine HCl (Vitamin B-1) 100 mg PO DAILY [facility] Stop: 05/27/20 09:01 Discontinued Medications Albuterol (Ventolin Hfa Prepack) 1 box MISC SEEINSTR ONE Stop: 05/23/20 12:17 Last Admin: 05/23/20 12:49 Dose: 1 box Documented by: SANDRAALSTO Albuterol (Ventolin) 2.5 mg INH [id number] [facility] Sodium Chloride (Normal Saline 0.9%) 1,000 mls @ 1,000 mls/hr IV BOLUS ONE Stop: 05/23/20 15:09 Last Infusion: 05/23/20 15:48 Dose: 1,000 mls/hr Documented by: Admin: 05/23/20 14:29 Dose: 1,000 mls/hr Documented by: JESSICA Ceftriaxone Sodium/Dextrose (Rocephin) 1 gm in 50 mls @ 100 mls/hr IV NOW ONE Stop: 05/23/20 14:39 Last Infusion: 05/23/20 18:14 Dose: 100 mls/hr Documented by: Admin: 05/23/20 16:24 Dose: 100 mls/hr Documented by: PARAMJIT Azithromycin 500 mg/ Dextrose 250 mls @ 250 mls/hr IV NOW ONE Stop: 05/23/20 14:11 Last Infusion: 05/23/20 15:37 Dose: 0 mls/hr Documented by: Admin: 05/23/20 14:29 Dose: 250 mls/hr Documented by: JESSICA Magnesium Sulfate (Magnesium Sulfate) 2 gm in 50 mls @ 25 mls/hr IV NOW ONE Stop: 05/23/20 17:00 Last Infusion: 05/23/20 18:13 Dose: 25 mls/hr Documented by: PARAMJIT Cosigned by: CHIRAG Infusion: 05/23/20 15:47 Dose: 25 mls/hr Documented by: JESSICA Cosigned by: TEE Admin: 05/23/20 15:15 Dose: 25 mls/hr Documented by: JESSICA Cosigned by: TEE Prednisone (Deltasone) 40 mg PO NOW ONE Stop: 05/23/20 15:02 Last Admin: 05/23/20 15:16 Dose: 40 mg Documented by: JESSICA Vital Signs Vital signs: Vital Signs - 8 hr 05/23/20 12:17 05/23/20 13:00 05/23/20 13:06 Temperature 99.2 F Pulse Rate 104 H 110 H 100 H Respiratory Rate 25 H 30 H 22 Blood Pressure 146/75 H 141/97 H Pulse Oximetry 97 94 98 05/23/20 13:30 05/23/20 14:01 05/23/20 14:30 Temperature Pulse Rate 101 H 103 H 98 H Respiratory Rate 19 21 21 Blood Pressure 136/74 114/85 147/70 H Pulse Oximetry 94 96 MDM - SOB/Dyspnea Lab Data Attestation: I reviewed the patient's lab results. Result diagrams: 05/23/20 12:28 05/23/20 12:28 Labs: Lab Results 05/23/20 05/23/20 05/23/20 Range/Units 12:28 12:28 12:28 WBC 9.9 (4.5-11.0) X10^3/uL RBC 3.93 L (4.5-5.9) X10^6/uL Hgb 14.6 (13.5-17.5) g/dL Hct 41.3 (41-53) % MCV 105.2 H (80-100) fL MCH 37.2 H (26-34) PG MCHC 35.3 (30-36) % RDW 13.2 (11.6-14.8) % Plt Count 193 (150-400) X10^3/uL Neut % (Auto) 73.3 (50-75) % Lymph % (Auto) 13.0 L (25-40) % [place]berry % (Auto) 13.1 (3-14) % Eos % (Auto) 0.2 L (2-4) % Baso % (Auto) 0.4 (0-2) % Neut # (Auto) 7300 H (3368-6003) /uL Lymph # (Auto) 1300 (4624-4799) /uL [place]berry # (Auto) 1300 H (0-900) /uL Eos # (Auto) 0 (0-450) /uL Baso # (Auto) 0 (0-100) /uL Sodium 136 L (137-145) mmol/L Potassium 4.1 (3.4-5.1) mmol/L Chloride 103 (98-107) mmol/L Carbon Dioxide 25 (22-32) mmol/L BUN 20 (9-20) mg/dL Creatinine 0.73 (0.66-1.25) mg/dL Estimated GFR > 60.0 (>60) mL/min BUN/Creatinine Ratio 27.4 H (6-22) Glucose 100 (80-110) mg/dL Lactate (0.7-2.1) mmol/L Calcium 9.9 (8.4-10.2) mg/dL Magnesium 1.3 L (1.6-2.3) mg/dL Total Bilirubin 1.3 (0.2-1.3) mg/dL AST 133 H (17-59) IU/L ALT 52 H (<50) IU/L Alkaline Phosphatase 119 (38-126) U/L Total Creatine Kinase 1380 H (55-170) U/L CK-MB (CK-2) 5.32 H (<2.37) ng/mL CK-MB (CK-2) Rel Index 0.4 L (1.5-5.0) % Troponin I < 0.012 (0.01-0.034) ng/mL NT-Pro-B Natriuret Pep 95 (<125) pg/mL Total Protein 7.4 (6.3-8.2) g/dL Albumin 4.1 (3.5-5.0) g/dL Globulin 3.3 (1.7-4.1) g/dL Albumin/Globulin Ratio 1.2 (1.0-2.8) Procalcitonin (<0.5) ng/mL COVID-19 PCR (Negative) 05/23/20 05/23/20 05/23/20 Range/Units 12:28 12:28 14:37 WBC (4.5-11.0) X10^3/uL RBC (4.5-5.9) X10^6/uL Hgb (13.5-17.5) g/dL Hct (41-53) % MCV (80-100) fL MCH (26-34) PG MCHC (30-36) % RDW (11.6-14.8) % Plt Count (150-400) X10^3/uL Neut % (Auto) (50-75) % Lymph % (Auto) (25-40) % Newberry % (Auto) (3-14) % Eos % (Auto) (2-4) % Baso % (Auto) (0-2) % Neut # (Auto) (4619-6909) /uL Lymph # (Auto) (5207-3983) /uL Newberry # (Auto) (0-900) /uL Eos # (Auto) (0-450) /uL Baso # (Auto) (0-100) /uL Sodium (137-145) mmol/L Potassium (3.4-5.1) mmol/L Chloride (98-107) mmol/L Carbon Dioxide (22-32) mmol/L BUN (9-20) mg/dL Creatinine (0.66-1.25) mg/dL Estimated GFR (>60) mL/min BUN/Creatinine Ratio (6-22) Glucose (80-110) mg/dL Lactate 3.3 H (0.7-2.1) mmol/L Calcium (8.4-10.2) mg/dL Magnesium (1.6-2.3) mg/dL Total Bilirubin (0.2-1.3) mg/dL AST (17-59) IU/L ALT (<50) IU/L Alkaline Phosphatase (38-126) U/L Total Creatine Kinase (55-170) U/L CK-MB (CK-2) (<2.37) ng/mL CK-MB (CK-2) Rel Index (1.5-5.0) % Troponin I (0.01-0.034) ng/mL NT-Pro-B Natriuret Pep (<125) pg/mL Total Protein (6.3-8.2) g/dL Albumin (3.5-5.0) g/dL Globulin (1.7-4.1) g/dL Albumin/Globulin Ratio (1.0-2.8) Procalcitonin 0.21 (<0.5) ng/mL COVID-19 PCR Negative (Negative) 05/23/20 Range/Units 14:49 WBC (4.5-11.0) X10^3/uL RBC (4.5-5.9) X10^6/uL Hgb (13.5-17.5) g/dL Hct (41-53) % MCV (80-100) fL MCH (26-34) PG MCHC (30-36) % RDW (11.6-14.8) % Plt Count (150-400) X10^3/uL Neut % (Auto) (50-75) % Lymph % (Auto) (25-40) % [place] % (Auto) (3-14) % Eos % (Auto) (2-4) % Baso % (Auto) (0-2) % Neut # (Auto) (7242-5950) /uL Lymph # (Auto) (6275-2213) /uL [place] # (Auto) (0-900) /uL Eos # (Auto) (0-450) /uL Baso # (Auto) (0-100) /uL Sodium (137-145) mmol/L Potassium (3.4-5.1) mmol/L Chloride (98-107) mmol/L Carbon Dioxide (22-32) mmol/L BUN (9-20) mg/dL Creatinine (0.66-1.25) mg/dL Estimated GFR (>60) mL/min BUN/Creatinine Ratio (6-22) Glucose (80-110) mg/dL Lactate 2.4 H (0.7-2.1) mmol/L Calcium (8.4-10.2) mg/dL Magnesium (1.6-2.3) mg/dL Total Bilirubin (0.2-1.3) mg/dL AST (17-59) IU/L ALT (<50) IU/L Alkaline Phosphatase (38-126) U/L Total Creatine Kinase (55-170) U/L CK-MB (CK-2) (<2.37) ng/mL CK-MB (CK-2) Rel Index (1.5-5.0) % Troponin I (0.01-0.034) ng/mL NT-Pro-B Natriuret Pep (<125) pg/mL Total Protein (6.3-8.2) g/dL Albumin (3.5-5.0) g/dL Globulin (1.7-4.1) g/dL Albumin/Globulin Ratio (1.0-2.8) Procalcitonin (<0.5) ng/mL COVID-19 PCR (Negative) Imaging Data Chest x-ray: Radiologist's Impression: PROCEDURE: XR CHEST 2V INDICATIONS: sob TECHNIQUE: 2 views of the chest were acquired. COMPARISON: [facility], , CHEST 2 VIEW, 12/29/2014, 15:48. [facility], CR, XR CHEST 2V, 11/17/2019, 10:42. [facility], CR, XR CHEST 2V, 12/18/2019, 9:28. [facility], CR, XR CHEST 2V, 01/26/2020, 10:19. FINDINGS: Surgical changes and devices: None. Lungs and pleura: The region of the lungs is similar to the previous exam with extensive interstitial prominence within the central aspect of the lungs that is more pronounced on the left when compared to the right. This overall pattern of interstitial markings is similar to examinations dating back to 2014 and a may represent chronic interstitial change. No definite consolidation is evident. There is no effusion or pneumothorax. Mediastinum: Mediastinal contours are normal. Heart size is normal. There is aortic atherosclerosis. Bones and chest wall: No suspicious bony abnormalities. Soft tissues appear unremarkable. IMPRESSION: No acute cardiopulmonary process is evident. Dictated by: Mika Alvarez M.D. on 05/23/2020 at 11:48 Approved by: Mika Alvarez M.D. on 05/23/2020 at 11:50 ECG Data Attestation: I personally reviewed and interpreted this ECG as follows: Prior ECG tracings: available for review Interpretation: 101 p.r. interval 142 QRS [address] changes similar to previous EKG MDM Narrative Medical decision making narrative: Patient is in no acute respiratory distress but does have some wheezing however he speaks easily. He is found to have elevated CPK of 1300 and elevated lactate of 3.3 with mild elevation of procalcitonin. Overall does not appear septic. His wound on right foot patient states has been there for a long time. Dr. Merlos in the ED to see and evaluate patient agrees with observation at this time Discharge Plan Departure Patient Disposition: Admitted as Observation Clinical Impression: COPD exacerbation, Elevated CPK, Hypomagnesemia Discharge Date/Time: 05/23/20 16:20 Referrals: Bing Candelaria DO [Primary Care Provider] - Admit Date/Time: 05/23/20 15:01 Admit Provider: Sal Merlos
[2020-05-23 12:36] LABS: Add Manual Diff / Slide Review NO; Basophils Absolute Auto 0 /uL (0-100); Basophils Percent Auto 0.4 % (0-2); Eosinophils Absolute Auto 0 /uL (0-450); Eosinophils Percent Auto 0.2 % (2-4); Hematocrit 41.3 % (41-53); Hemoglobin 14.6 g/dL (13.5-17.5); Lymphocytes Absolute Auto 1300 /uL (1100-4500); Mean Corpuscular HGB Conc 35.3 % (30-36); Mean Corpuscular Hemoglobin 37.2 PG (26-34); Mean Corpuscular Volume 105.2 fL (80-100); Monocytes Absolute Auto 1300 /uL (0-900); Monocytes Percent Auto 13.1 % (3-14); Neutrophils Absolute Auto 7300 /uL (1500-7000); Neutrophils Percent Auto 73.3 % (50-75); Platelet Count 193 X10^3/uL (150-400); Red Blood Cell Count 3.93 X10^6/uL (4.5-5.9); Red Cell Distribution Width 13.2 % (11.6-14.8); White Blood Cell Count 9.9 X10^3/uL (4.5-11.0)
[2020-05-23 12:48] LABS: Lactate (Lactic Acid) 3.3 mmol/L (0.7-2.1)
[2020-05-23 12:49] LABS: Alanine Aminotransferase 52 IU/L (<50); Albumin 4.1 g/dL (3.5-5.0); Albumin Globulin Ratio 1.2 (1.0-2.8); Alkaline Phosphatase 119 U/L (38-126); Aspartate Aminotransferase 133 IU/L (17-59); BUN Creatinine Ratio 27.4 (6-22); Bilirubin Total 1.3 mg/dL (0.2-1.3); Blood Urea Nitrogen 20 mg/dL (9-20); Calcium 9.9 mg/dL (8.4-10.2); Carbon Dioxide 25 mmol/L (22-32); Chloride 103 mmol/L (98-107); Creatine Kinase 1380 U/L (55-170); Estimated Glomerular Filt Rate > 60.0 mL/min (>60); Globulin 3.3 g/dL (1.7-4.1); Glucose 100 mg/dL (80-110); HEMOLYSIS < 15 (0-50); Magnesium 1.3 mg/dL (1.6-2.3); Potassium 4.1 mmol/L (3.4-5.1); Sodium 136 mmol/L (137-145); Total Protein 7.4 g/dL (6.3-8.2)
[2020-05-23] MEDS: ALBUTEROL HFA PREPACK 1 BOX MISC (12:49)
[2020-05-23 12:58] LABS: NT-proBNP (BNP-Adult 18+) 95 pg/mL (<125)
[2020-05-23 13:00] LABS: Troponin I < 0.012 ng/mL (0.01-0.034)
[2020-05-23 13:04] LABS: CKMB % Relative Index 0.4 % (1.5-5.0); Creatine Kinase MB 5.32 ng/mL (<2.37)
[2020-05-23 13:28] LABS: Procalcitonin 0.21 ng/mL (<0.5)
[2020-05-23] MEDS: AZITHROMYCIN 500 MG in DEXTROSE 5% IN WATER 250 ML IV (14:29)
[2020-05-23] MEDS: SODIUM CHLORIDE 0.9% 1,000 ML 1000 ML IV (14:29)
[2020-05-23 14:33] LABS: Reflexed Lactate in 2 Hours Y
[2020-05-23 15:06] LABS: Lactate 2HR (Lactic Acid Rflx) 2.4 mmol/L (0.7-2.1)
[2020-05-23] MEDS: MAGNESIUM SULFATE 2 GM/50 ML PIGGYBACK IV (15:15)
[2020-05-23] MEDS: predniSONE 20 MG TABLET 40 MG PO (15:16)
[2020-05-23 15:43] LABS: COVID19 -Nasal RAPID Negative (Negative)
--- NOTE | 2020-05-23 15:47 | PC.NURSE ---
RT at bedside for ABG
--- NOTE | 2020-05-23 16:09 | PM.HP.1 ---
History of Present Illness History of Present Illness Date Patient Seen: 05/23/20 Time Patient Seen: 16:11 Chief complaint: SOB Narrative: Charanjit Birmingham is a 59-year-old male with past medical history of COPD, diabetes who presented with worsened shortness of breath starting this morning. He was given nebulizer treatments EN route to the hospital with EMS. Patient has been having difficulties controlling his COPD, and has been following with Dr. Candelaria as an outpatient but has continued to become more and more short of breath. He continues to smoke approximately a pack a day at this time. He states his shortness of breath has been progressive over the past few months now, and he is able to walk about 50 ft before getting short of breath. He uses his nebulizer machine at home multiple times per day, as well as use his chronic inhalers including albuterol inhaler multiple times a day as well. He has had some productive cough recently with mild increase in sputum production, and a change in color. In the emergency room, patient was mildly hypertensive and tachycardic. He is saturating well on room air. He still feels subjectively short of breath. His labs or relatively unremarkable with a WBC of 9.9, hemoglobin of 14.6, and platelet count of 193. Chemistries were unremarkable except for a magnesium of 1.3, lactate of 3.3 which and true to 2.4 with fluids. There is a mild transaminase elevation with an AST of 133, ALT of 52 with a CK of 13 180. Troponin was negative x1 in the emergency room. ProBNP was 95. COVID-19 testing was negative. Procalcitonin was 0.21. Chest x-ray was unremarkable. Patient was given a dose of ceftriaxone azithromycin, prednisone 40 mg, 2 g of magnesium, and nebulizer therapies. Given patient's progressive shortness of breath he will be admitted under observation status for COPD exacerbation. After arrival to the floor patient became nauseous and had an episode of dry heaves. He was shaky and tremulous. He endorses drinking approximately a pint hard liquor nightly. Patient History Medical History (Updated 05/23/20 @ 15:02 by Roxana Eden DO) Alcoholism (Chronic) C7 radiculopathy (Chronic) Colon polyps (Resolved) Diabetes mellitus type 2, insulin dependent (Chronic) Diabetic neuropathy (Acute) Type 2 diabetes mellitus with complications (Acute) Surgical History History of partial colectomy (Resolved) History of prostatectomy (Resolved) S/P hernia repair (Resolved) Family & Social History Family History Mother Colon cancer Social History: lives independently Yes Safety & Behavioral: Feels Safe in Current Yes Environment Been Physically Hurt or No Threatened By a Person Tobacco & Substance use: Smoking Status Current every day smoker alcohol intake current alcohol intake frequency 0-2 drinks per day Substance Use Type does not use Meds Home Medications and Allergies Home Medications Medication Instructions Recorded Confirmed Type aspirin 81 mg PO QDAY #90 ctb 12/17/16 05/23/20 Rx ipratropium 0.5 mg-albuterol 3 mg 3 ml INHALATION QID #360 vial 12/04/18 05/23/20 Rx (2.5 mg base)/3 mL nebulization soln gabapentin 300 mg capsule 600 mg PO QHS #60 cap 12/26/18 05/23/20 Rx folic acid 1 mg tablet 1 mg PO QDAY #90 tab 02/06/19 05/23/20 Rx glipizide 10 mg tablet 10 mg PO QDAY #90 tab 02/06/19 05/23/20 Rx lisinopril 5 mg tablet 5 mg PO QDAY #90 tab 02/06/19 05/23/20 Rx simvastatin 20 mg tablet 20 mg PO HS #90 tab 03/02/19 05/23/20 Rx ipratropium 20 mcg-albuterol 100 1 puff INHALATION QID #4 gram 02/01/20 05/23/20 Rx mcg/actuation mist for inhalation insulin glargine 100 unit/mL (3 35 unit SUBCUT DAILY #10 ml 03/03/20 05/23/20 Rx mL) subcutaneous pen fluticasone propionate 230 2 puff INHALATION BID #12 gram 05/09/20 05/23/20 Rx mcg-salmeterol 21 mcg/actuation HFA inhaler Allergies Allergy/AdvReac Type Severity Reaction Status Date / Time Cocke And Derivatives Allergy Severe hives Verified 01/26/20 09:21 [CITRUS AND DERIVATIVES] chocolate flavor Allergy Intermediate HIVES Verified 01/26/20 09:21 [CHOCOLATE FLAVOR] codeine [CODEINE] AdvReac Intermediate NAUSEA Verified 01/26/20 09:21 Review of Systems Review of Systems Narrative: All other systems reviewed with the patient and are negative unless otherwise stated. Exam Vital Signs (past 8 hours): - 05/23/20 12:17 05/23/20 13:00 05/23/20 13:06 Temperature 99.2 F Pulse Rate 104 H 110 H 100 H Respiratory Rate 25 H 30 H 22 Blood Pressure 146/75 H 141/97 H Pulse Oximetry 97 94 98 05/23/20 13:30 05/23/20 14:01 05/23/20 14:30 Temperature Pulse Rate 101 H 103 H 98 H Respiratory Rate 19 21 21 Blood Pressure 136/74 114/85 147/70 H Pulse Oximetry 94 96 Oxygen Delivery Method Room Air Narrative Exam Narrative: GENERAL APPEARANCE: Chronically ill-appearing a mildly disheveled elderly male, in no acute distress but does speak in short sentences. SKIN: Inspection of the skin reveals no rashes, ulcerations or petechiae. HEENT: Normocephalic atraumatic, extraocular muscles are intact, oropharynx is clear and mucous membranes are moist, neck is supple without adenopathy NECK: Supple and symmetric. There was no thyroid enlargement, and no tenderness, or masses were felt. CHEST: Slightly barrel-chested, no tenderness. LUNGS: Auscultation of the lungs revealed mild expiratory wheezes in bilateral upper lobes, no rhonchis or rales. Mildly diminished air movement bilaterally in all lung lino. CARDIOVASCULAR: There was a regular rate and rhythm without any murmurs, gallops, rubs. Peripheral pulses were 2+ and symmetric. ABDOMEN: Soft and nontender with normal bowel sounds. No ascites was noted. MUSCULOSKELETAL: There was no tenderness or effusions noted. Muscle strength and tone were normal. EXTREMITIES: No cyanosis, clubbing or edema. NEUROLOGIC: Alert and oriented x 3. Normal affect. Gait was normal. Strength is +5/5 in the Upper Extremities and Lower Extremities Bilaterally. Sensation to touch was normal. In later examinations he had tongue fasciculations and mild tremulousness. Objective ECG Impression: Sinus tachycardia, no significant morphology changes compared to prior tracings. Imaging Chest x-ray: My impression: Somewhat poor inspiratory effort, lungs are clear without any focal infiltrates, there is no cardiomegaly. Radiologist's impression: No acute cardiopulmonary pathologies Labs Result Diagrams: 05/23/20 12:28 05/23/20 12:28 Labs: Laboratory Results - last 24 hr 05/23/20 05/23/20 05/23/20 12:28 12:28 12:28 WBC 9.9 RBC 3.93 L Hgb 14.6 Hct 41.3 MCV 105.2 H MCH 37.2 H MCHC 35.3 RDW 13.2 Plt Count 193 Neut % (Auto) 73.3 Lymph % (Auto) 13.0 L [place] % (Auto) 13.1 Eos % (Auto) 0.2 L Baso % (Auto) 0.4 Neut # (Auto) 7300 H Lymph # (Auto) 1300 [place] # (Auto) 1300 H Eos # (Auto) 0 Baso # (Auto) 0 Sodium 136 L Potassium 4.1 Chloride 103 Carbon Dioxide 25 BUN 20 Creatinine 0.73 Estimated GFR > 60.0 BUN/Creatinine Ratio 27.4 H Glucose 100 Lactate Calcium 9.9 Magnesium 1.3 L Total Bilirubin 1.3 AST 133 H ALT 52 H Alkaline Phosphatase 119 Total Creatine Kinase 1380 H CK-MB (CK-2) 5.32 H CK-MB (CK-2) Rel Index 0.4 L Troponin I < 0.012 NT-Pro-B Natriuret Pep 95 Total Protein 7.4 Albumin 4.1 Globulin 3.3 Albumin/Globulin Ratio 1.2 Procalcitonin COVID-19 PCR 05/23/20 05/23/20 05/23/20 12:28 12:28 14:37 WBC RBC Hgb Hct MCV MCH MCHC RDW Plt Count Neut % (Auto) Lymph % (Auto) [place] % (Auto) Eos % (Auto) Baso % (Auto) Neut # (Auto) Lymph # (Auto) [place] # (Auto) Eos # (Auto) Baso # (Auto) Sodium Potassium Chloride Carbon Dioxide BUN Creatinine Estimated GFR BUN/Creatinine Ratio Glucose Lactate 3.3 H Calcium Magnesium Total Bilirubin AST ALT Alkaline Phosphatase Total Creatine Kinase CK-MB (CK-2) CK-MB (CK-2) Rel Index Troponin I NT-Pro-B Natriuret Pep Total Protein Albumin Globulin Albumin/Globulin Ratio Procalcitonin 0.21 COVID-19 PCR Negative 05/23/20 14:49 WBC RBC Hgb Hct MCV MCH MCHC RDW Plt Count Neut % (Auto) Lymph % (Auto) [place] % (Auto) Eos % (Auto) Baso % (Auto) Neut # (Auto) Lymph # (Auto) [place] # (Auto) Eos # (Auto) Baso # (Auto) Sodium Potassium Chloride Carbon Dioxide BUN Creatinine Estimated GFR BUN/Creatinine Ratio Glucose Lactate 2.4 H Calcium Magnesium Total Bilirubin AST ALT Alkaline Phosphatase Total Creatine Kinase CK-MB (CK-2) CK-MB (CK-2) Rel Index Troponin I NT-Pro-B Natriuret Pep Total Protein Albumin Globulin Albumin/Globulin Ratio Procalcitonin COVID-19 PCR Assessment & Plan Assessment & Plan narrative: Charanjit Birmingham is a 59-year-old male with past medical history of COPD, diabetes who presented with worsened shortness of breath starting this morning. He is admitted under observation status for COPD exacerbation. 1. COPD with exacerbation, acute, present on admission - RT eval and treat - pulmicort 5 mg BID, duoneb QID, albuterol q4 hr PRN. - COVID 19 negative - continue prednisone 40 mg x5 days. Doxycycline 100 mg BID for antiinflammatory effect. - replete magnesium which was 1.3 on admission which may help with respiratory difficulties. 2. Elevated lactate, present on admission - likely secondary to nebulizer therapies with EMS. Continue to follow until <2 and he is likely somewhat dehydrated and will continue fluid hydration as noted below. - procalcitonin negative at 0.21 on admission. 3. Hypo magnesemia, acute, present on admission - given 2 g IV upon admission. Follow daily. 4. Type 2 diabetes, chronic - hold oral medcations - resume glargine 35 units nightly with sliding scale coverage. 5. Alcoholic hepatitis, acute, present on admission -AST of 133, ALT of 52 on admission consistent with alcoholic hepatitis. Patient drinks approximately 1 pint hard liquor daily -continue to follow transaminase levels 6. Mild rhabdomyolysis, acute, present on admission -continue fluid hydration, CK on admission is 1380. 7. Alcohol withdrawal, acute -upon arrival to the floor patient became nauseous developed tremors and tongue fasciculations. He was placed on CIWA protocol and will receive as needed Ativan at this time. Given his history I will also start him on Librium this evening with only 25 mg 3 times daily given that he reports no prior history of withdrawal. -placed on seizure precautions -continue multivitamin, thiamine, folate -[employer] HELPER consultation Code: Full DVT: Lovenox daily COVID-19 status: Negative
[2020-05-23] MEDS: SODIUM CHLORIDE 0.9% 1,000 ML 100 ML IV (16:24)
[2020-05-23] MEDS: CEFTRIAXONE 1 GM/50 ML FROZ.PIGGY IV (16:24)
[2020-05-23 16:55] LABS: PCO2 ABG 34.5 mmHg (35-45); pH ABG 7.44 (7.35-7.45)
[2020-05-23 16:56] LABS: Fractionated Inspired Oxygen 21; HCO3 ABG 23 mmol/L (22-26); Oxygen Saturation ABG 95 % (95-100); PO2 ABG 75 mmHg (80-100); TCO2 ABG 24 mmol/L (21-31)
[2020-05-23] MEDS: ALBUTEROL/IPRATROPIUM 3 ML AMPUL INH (17:47)
[2020-05-23] MEDS: BUDESONIDE 0.5 MG/2 ML NEB INH (17:47)
[2020-05-23] MEDS: ONDANSETRON 4 MG/2 ML INJ (18:13)
[2020-05-23] MEDS: LORazepam 2 MG/ML INJ IV (18:22)
[2020-05-23] MEDS: chlordiazePOXIDE 25 MG CAPSULE PO (20:51)
[2020-05-23] MEDS: guaiFENesin ER 600 MG TAB PO (20:51)
[2020-05-23] MEDS: GABAPENTIN 600 MG TABLET PO (20:51)
[2020-05-23] MEDS: DOXYCYCLINE HYCLATE 100 MG TABLET PO (20:51)
[2020-05-23] MEDS: SIMVASTATIN 20 MG TABLET PO (20:51)
[2020-05-23] MEDS: ACETAMINOPHEN 325 MG TABLET 650 MG PO (23:44)
[2020-05-24] VITALS (11 sets, daily range): BP systolic 141–148; BP diastolic 77–82; PULSE 74–91; RESP 16–22; TEMP 36.9–37.3; O2SAT 95–98
[2020-05-24] MEDS: ALBUTEROL 2.5 MG/3 ML NEB (ADULT) INH (03:07)
[2020-05-24] MEDS: SODIUM CHLORIDE 0.9% 1,000 ML 100 ML IV (04:31)
[2020-05-24 05:47] LABS: Add Manual Diff / Slide Review NO; Basophils Absolute Auto 0 /uL (0-100); Basophils Percent Auto 0.1 % (0-2); Eosinophils Absolute Auto 0 /uL (0-450); Hematocrit 37.5 % (41-53); Hemoglobin 13.1 g/dL (13.5-17.5); Lymphocytes Absolute Auto 500 /uL (1100-4500); Lymphocytes Percent Auto 8.5 % (25-40); Mean Corpuscular HGB Conc 34.9 % (30-36); Mean Corpuscular Hemoglobin 37.2 PG (26-34); Mean Corpuscular Volume 106.6 fL (80-100); Monocytes Absolute Auto 700 /uL (0-900); Monocytes Percent Auto 12.4 % (3-14); Neutrophils Absolute Auto 4700 /uL (1500-7000); Platelet Count 148 X10^3/uL (150-400); Red Blood Cell Count 3.52 X10^6/uL (4.5-5.9); Red Cell Distribution Width 12.9 % (11.6-14.8)
[2020-05-24 05:51] LABS: Lactate (Lactic Acid) 1.1 mmol/L (0.7-2.1)
[2020-05-24 05:52] LABS: Alanine Aminotransferase 43 IU/L (<50); Albumin 3.4 g/dL (3.5-5.0); Albumin Globulin Ratio 1.1 (1.0-2.8); Alkaline Phosphatase 96 U/L (38-126); Aspartate Aminotransferase 89 IU/L (17-59); BUN Creatinine Ratio 43.9 (6-22); Bilirubin Unconjugated 0.7 mg/dL (0.0-1.1); Blood Urea Nitrogen 25 mg/dL (9-20); Calcium 8.7 mg/dL (8.4-10.2); Carbon Dioxide 27 mmol/L (22-32); Chloride 104 mmol/L (98-107); Estimated Glomerular Filt Rate > 60.0 mL/min (>60); Glucose 174 mg/dL (80-110); HEMOLYSIS < 15 (0-50); Magnesium 1.4 mg/dL (1.6-2.3); Potassium 4.2 mmol/L (3.4-5.1); Sodium 135 mmol/L (137-145); Total Protein 6.4 g/dL (6.3-8.2)
[2020-05-24] MEDS: BUDESONIDE 0.5 MG/2 ML NEB INH (07:41)
[2020-05-24] MEDS: ALBUTEROL/IPRATROPIUM 3 ML AMPUL INH ×3 (07:41→14:20)
[2020-05-24] MEDS: ASPIRIN 81 MG CHEW TAB PO (08:01)
[2020-05-24] MEDS: MULTIVITAMIN 1 TABLET 1 TAB PO (08:01)
[2020-05-24] MEDS: DOXYCYCLINE HYCLATE 100 MG TABLET PO (08:01)
[2020-05-24] MEDS: predniSONE 20 MG TABLET 40 MG PO (08:01)
[2020-05-24] MEDS: ACETAMINOPHEN 325 MG TABLET 650 MG PO (08:02)
[2020-05-24] MEDS: FOLIC ACID 1 MG TABLET PO (08:02)
[2020-05-24] MEDS: THIAMINE 100 MG TABLET PO (08:02)
[2020-05-24] MEDS: ENOXAPARIN 40 MG/0.4 ML SYRINGE SUBCUT (08:02)
[2020-05-24] MEDS: lisinopriL 5 MG TABLET PO (08:02)
[2020-05-24] MEDS: chlordiazePOXIDE 25 MG CAPSULE PO (08:03)
[2020-05-24] MEDS: NICOTINE 21 MG PATCH TOP (08:03)
[2020-05-24] MEDS: MAGNESIUM SULFATE 2 GM/50 ML PIGGYBACK IV (08:07)
[2020-05-24] MEDS: guaiFENesin ER 600 MG TAB PO (08:07)
[2020-05-24] MEDS: INSULIN GLARGINE 100 UNIT/ML 3ML PEN 35 UNIT SUBCUT (08:08)
[2020-05-24] MEDS: SODIUM CHLORIDE 0.9% FLUSH 10 ML IV (08:13)
[2020-05-24] MEDS: MAGNESIUM CHLORIDE 64 MG TABLET 128 MG PO (11:53)
[2020-05-24] MEDS: INSULIN ASPART 100 UNIT/ML INSULN PEN SUBCUT (11:54)
--- NOTE | 2020-05-24 12:47 | PT.IIE ---
Current Diagnoses Alcohol dependence, uncomplicated (05/23/20) Surgical History (Last Reviewed 05/09/20 @ 13:22 by Bing Candelaria DO) History of partial colectomy (Resolved) History of prostatectomy (Resolved) S/P hernia repair (Resolved) Medical History (Last Reviewed 05/09/20 @ 13:22 by Bing Candelaria DO) Alcoholism (Chronic) C7 radiculopathy (Chronic) Colon polyps (Resolved) Diabetes mellitus type 2, insulin dependent (Chronic) Diabetic neuropathy (Acute) Type 2 diabetes mellitus with complications (Acute) Physical Therapy Inpatient Evaluation/Re-Eval M1 PT/OT-IP Prior Functional Status Start: 05/24/20 11:36 Freq: NEEDED Status: Active Protocol: Document 05/24/20 12:24 AW (Rec: 05/24/20 12:47 AW [id number]) Medical Review Prior Functional Status Medical History Reviewed Yes Communication WNL. Pt is able to make needs known. Mobility and Gait Pt is IND without any device but admits to a distance limit of ~60 feet which has worsened over the past week. He also admits to four falls in the past month. Activities of Daily Living and IADL's IND with ADL's. 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 Social History Household Members family Living Arrangements House Number of Floors (Floors) Two Floors Number of Stairs To Enter/Railing? 3 FELIPA with poles on either side for support. Home has two levels. Pt must climb 15 steps with right rail ascending to access his bedroom on the second level. He frequently uses both hands on the railing Home Environment Standard Height Toilet,Walk in Shower Home Equipment Quad Cane,Hand Held Shower, Grab Bars In Shower Employment Status Retired Additional Social History Comment Pt lives with his brother who works 6-7 days per week. Pt is home alone frequently. No supportive services in the home. M2 PT-IP Current Condition Start: 05/24/20 11:36 Freq: NEEDED Status: Active Protocol: Document 05/24/20 12:24 AW (Rec: 05/24/20 12:47 AW [id number]) Physical Therapy Current Condition Current Condition Evaluation Date 05/24/20 Treatment Diagnosis COPD exacerbation; difficulty in walking Onset Date 05/23/20 Precautions Other Precautions Seizure precautions secondary to alcohol withdrawal. High falls risk. M3 PT-IP Subjective Start: 05/24/20 11:36 Freq: NEEDED Status: Active Protocol: Document 05/24/20 12:24 AW (Rec: 05/24/20 12:47 AW [id number]) Subjective Physical Therapy Visit Type Type Initial Evaluation Visit Start Time 12:02 Visit Stop Time 12:19 Total Visit Minutes 17 Notes Last documented CIWA score at 0818 today was 4. Physical Therapy Visit Comments Patient Comments Pt is willing to participate with PT Therapy Pain Assessment Pain When Pain Assessed During Mobility Pain Present Pain Present Denied Pain M4 PT-IP Mobility and Gait Start: 05/24/20 11:36 Freq: NEEDED Status: Active Protocol: Document 05/24/20 12:24 AW (Rec: 05/24/20 12:47 AW [id number]) PT-Bed Mobility Assessment Rolling Level of Assist Independent Supine to Sit Supine to Sit Independent Sit to Supine Sit to Supine Independent Scooting Scooting to Edge of Bed Independent PT-Transfer Assessment Sit to and From Stand Sit to and from Stand Standby Assistance,Use of Upper Extremities Equipment Transfer Assistive Device Gait Belt,Front Wheeled Walker Orthotic/Prosthetic Devices or Brace: No Transfers Transfer Destination Bed,Chair Transfer Technique pt ambulated with FWW Transfer Ability Level of Assist Standby Assistance,Use of Upper Extremities Comments Mobility Comments Pt was sitting EOB eating lunch when PT arrived. SpO2 prior to mobility was 95% on room air. Pt agreed to perform bed mobility which he did independently. He then stood without AD with unsteadiness in initial standing. Pt reached for the bed and the table while standing due to unsteadiness. Pt was given a FWW and he was able to stand with UE support on the walker. Pt then ambulated 35 feet in the halls using FWW SBA. Pt's labor of breathing increased quickly and pt requested to sit on a chair in the hallway. He transferred to and from the chair SBA. SpO2 remained steady in the mid-90's on room air. Pt then ambulated another 20 feet back to the bed where he transferred SBA. Pt remained seated EOB to finish his lunch. Bed alarm was armed for safety and call light was placed within reach. Gait Assessment Gait Gait Assistance Required: Standby Assistance Distance (Feet) 35 Assistive Devices Assistive Device Gait Belt,Front Wheeled Walker Gait Deviations General Gait Pattern Decreased Stride Length, Decreased Feet Clearance, Flexed Trunk,Wide Based Gait Factors Limiting Gait Function Factors Limiting Gait Function Decreased Activity Tolerance, Decreased Sensation,Decreased Strength,Incoordination,Poor Balance,Poor Safety Awareness, Respiratory Distress Comments Gait Comments Pt was able to respond to cues for upright posture with FWW. Steadiness was improved with the walker. Activity tolerance was limited by respiratory distress, requiring a break after 35 feet. Stair Climbing Assessment Comments Stair Climbing Comments Not assessed. PT-Balance Assessment Sitting Balance and Reactions Static Sitting Balance Ability Normal Dynamic Sitting Balance Ability Good Standing Balance and Reactions Static Standing Balance Ability Fair Dynamic Standing Balance Ability Fair Device Used FWW Balance Tests Single Limb Standing <2 sec each leg M5 PT-IP Objective Assessments Start: 05/24/20 11:36 Freq: NEEDED Status: Active Protocol: Document 05/24/20 12:24 AW (Rec: 05/24/20 12:47 AW [id number]) Orientation Orientation/Cognition Level of Alertness Alert Orientation Name,Month,Place,Situation Language Function Ability No Deficits Noted Safety Awareness Decreased Safety Awareness Gross Range of Motion Upper Extremity ROM Assessment Within Functional Limits Lower Extremity ROM Assessment Within Functional Limits Strength Lower Extremity Strength Assessment Bilaterally Impaired Hip 4-/5 Knee 4-/5 Ankle 4+/5 Coordination Assessment Gross Coordination Gross Coordination Impaired Assessment Finger to Nose Test Minimal Impairment Pronation/Supination Test Minimal Impairment Sensation Assessment Sensation Gross Sensation Right LE Impaired Light Touch Impaired Proprioception (Position) Impaired Sensation Description Tingling Comments Sensation Comments Pt reports chronic but worsening tingling in his right foot. Muscle Tone Muscle Tone WNL No Muscle Tone Location Bilateral Upper Extremity Severity of Tone Moderate Manifistation of Tone Resting Tremors,Intention Tremors M6 PT-IP Treatment Start: 05/24/20 11:36 Freq: NEEDED Status: Active Protocol: Document 05/24/20 12:24 AW (Rec: 05/24/20 12:47 AW [id number]) Physical Therapy Treatment Education Education Provided Precautions,Safety Other Treatments Other Treatment Performed Provided education on role of PT, plan of care, and rationale for selection of an assistive device. M7 PT-IP Assessment and Plan Start: 05/24/20 11:36 Freq: NEEDED Status: Active Protocol: Document 05/24/20 12:24 AW (Rec: 05/24/20 12:47 AW [id number]) PT Summary Assessment and Plan Potential Rehabilitation Potential Good Status of Condition at Evaluation Evolving Summary Impairments Strength,Balance,Coordination, Sensation,Tone,Cognition, Transfers,Gait,Activity Tolerance Assessment Summary Alen is a 59 yo man with history of COPD and alcohol dependency. He was seen for PT evaluation with admitting diagnosis of COPD exacerbation . He is independent but limited in distance/duration for baseline mobility. On evaluation, pt completed all bed mobility independently but presented with balance, strenth, and endurance deficits. SpO2 remained steady in the mid-90's throughout assessment but labor of breathing interfered with pt's ability to ambulate safely. Steadiness was improved with use of FWW which PT recommends for home use. Pt confirms a FWW would fit everywhere he needs to go at home. Pt will benefit from continued acute PT to safely progress mobility and for continued gait training with FWW. Goals Transfer Goal Independent,Front Wheeled Walker Gait Goal Independent,Front Wheel Walker Gait Distance 120 Other Goals - up/down 15 steps with R rail ascending SBA Days to Meet Goals 5 Frequency of Treatment Frequency Of Treatment Once a Day Treatment Plan Physical Therapy Treatment Plan Bed Mobility Training,Transfer Training,Gait Training, Therapeutic Exercise,Balance Retraining,Post Op Education, Discharge Planning,Hot or Cold Pack,Coordination Retraining Other Recommendations and Next Treatment gait training with FWW; Focus monitor VS; stair assessment Recommendations To Nursing Amount of Assist Needed Standby Assistance Discharge Recommendations PT Discharge Recommendations Home with Assistance,Home Health Equipment Needed for Home Before FWW Discharge Transportation Needs at Discharge Private Vehicle
--- NOTE | 2020-05-24 13:44 | PM.DS.1 ---
History of Present Illness History of Present Illness Date Patient Seen: 05/24/20 Time Patient Seen: 13:44 Chief complaint: SOB Narrative: Charanjit Birmingham is a 59-year-old male with past medical history of COPD, diabetes who presented with worsened shortness of breath starting this morning. He was given nebulizer treatments EN route to the hospital with EMS. Patient has been having difficulties controlling his COPD, and has been following with Dr. Candelaria as an outpatient but has continued to become more and more short of breath. He continues to smoke approximately a pack a day at this time. He states his shortness of breath has been progressive over the past few months now, and he is able to walk about 50 ft before getting short of breath. He uses his nebulizer machine at home multiple times per day, as well as use his chronic inhalers including albuterol inhaler multiple times a day as well. He has had some productive cough recently with mild increase in sputum production, and a change in color. In the emergency room, patient was mildly hypertensive and tachycardic. He is saturating well on room air. He still feels subjectively short of breath. His labs or relatively unremarkable with a WBC of 9.9, hemoglobin of 14.6, and platelet count of 193. Chemistries were unremarkable except for a magnesium of 1.3, lactate of 3.3 which and true to 2.4 with fluids. There is a mild transaminase elevation with an AST of 133, ALT of 52 with a CK of 13 180. Troponin was negative x1 in the emergency room. ProBNP was 95. COVID-19 testing was negative. Procalcitonin was 0.21. Chest x-ray was unremarkable. Patient was given a dose of ceftriaxone azithromycin, prednisone 40 mg, 2 g of magnesium, and nebulizer therapies. Given patient's progressive shortness of breath he will be admitted under observation status for COPD exacerbation. After arrival to the floor patient became nauseous and had an episode of dry heaves. He was shaky and tremulous. He endorses drinking approximately a pint hard liquor nightly. Discharge Providers Provider Date of admission: 05/23/20 15:01 Discharge Date: 05/24/20 Primary care physician: Bing Candelaria DO Consults: 05/23/20 12:17 Consult to Respiratory Therapy Evaluate & Treat Comment: Physician Instructions: Evaluate and treat 05/23/20 16:32 Consult to Dietitian, Adult Routine Comment: Reason For Exam: per patient, weight loss >10lbs 05/23/20 18:43 Consult to NURSES DIRECTOR - Computer Repair Technician Routine Comment: EtOH withdrawal 05/24/20 10:31 Consult to Physical Therapy Evaluate & Treat Comment: Physician Instructions: Evaluate and Treat Discharge provider: Sal Merlos DO Summary Hospital Course Discharge Diagnosis: Please see hospital course by problem list noted below. Hospital Course: Charanjit Birmingham is a 59-year-old male with past medical history of COPD, diabetes who presented with worsened shortness of breath. He is admitted under observation status for COPD exacerbation and developed mild alcohol withdrawal. 1. COPD with exacerbation, acute, present on admission - Patient improved symptomatically with prednisone 40 mg daily and doxycycline added for anti-inflammatory effect. He was discharged home with improved dyspnea on exertion. - PMD follow up. 2. Elevated lactate, present on admission, resolved. - likely secondary to nebulizer therapies with EMS. Resolved upon discharge. - procalcitonin negative at 0.21 on admission. 3. Hypo magnesemia, acute, present on admission - given 2 g IV upon admission and the following day when it remained low. Recommended multivitamin on discharge given likely poor nutrition in setting of EtOH. 4. Type 2 diabetes, chronic - no changes are recommended upon discharge. He was continued on home insulin and oral medications held while admitted. 5. Alcoholic hepatitis, acute, present on admission -AST of 133, ALT of 52 on admission consistent with alcoholic hepatitis. Patient drinks approximately 1 pint hard liquor daily. Improved with cessation. 6. Mild rhabdomyolysis, acute, present on admission -given fluid hydration, CK on admission is 1380. IMproved with IV hydration. 7. Alcohol withdrawal, acute -upon arrival to the floor patient became nauseous developed tremors and tongue fasciculations. He was placed on CIWA protocol and will receive as needed Ativan at this time. Given his history he was started on a low dose librium taper. He was continued overnight on librium and was discharged when he was without symptoms off of librium the following day. -placed on seizure precautions -continue multivitamin as outpatient. -NURSES DIRECTOR consultation was performed and patient provided outpatient resources for cessation. COVID-19 status: Negative Exam Vital Signs (past 8 hours): - 05/24/20 07:29 05/24/20 07:43 05/24/20 08:15 Temperature 98.5 F Pulse Rate 75 80 Respiratory Rate 17 22 Blood Pressure 141/79 H Pulse Oximetry 97 95 97 05/24/20 11:22 05/24/20 11:31 05/24/20 12:05 Temperature 98.7 F Pulse Rate 74 91 H Respiratory Rate 20 16 Blood Pressure 148/77 H Pulse Oximetry 98 97 97 Oxygen Delivery Method Room Air Oxygen Flow Rate 0 Narrative Exam Narrative: GENERAL APPEARANCE: Chronically ill-appearing a mildly disheveled elderly male, in no acute distress but does speak in short sentences. SKIN: Inspection of the skin reveals no rashes, ulcerations or petechiae. HEENT: Normocephalic atraumatic, extraocular muscles are intact, oropharynx is clear and mucous membranes are moist, neck is supple without adenopathy NECK: Supple and symmetric. There was no thyroid enlargement, and no tenderness, or masses were felt. CHEST: Slightly barrel-chested, no tenderness. LUNGS: no wheezes rhonch or rales bilaterally, CTA. Improved air movement throughout. CARDIOVASCULAR: There was a regular rate and rhythm without any murmurs, gallops, rubs. Peripheral pulses were 2+ and symmetric. ABDOMEN: Soft and nontender with normal bowel sounds. No ascites was noted. MUSCULOSKELETAL: There was no tenderness or effusions noted. Muscle strength and tone were normal. EXTREMITIES: No cyanosis, clubbing or edema. NEUROLOGIC: Alert and oriented x 3. Normal affect. Gait was normal. Strength is +5/5 in the Upper Extremities and Lower Extremities Bilaterally. Sensation to touch was normal. Objective Labs Result Diagrams: 05/24/20 05:19 05/24/20 05:19 Labs: Laboratory Results - last 24 hr 05/23/20 05/23/20 05/23/20 14:37 14:49 15:53 WBC RBC Hgb Hct MCV MCH MCHC RDW Plt Count Neut % (Auto) Lymph % (Auto) [place] % (Auto) Eos % (Auto) Baso % (Auto) Neut # (Auto) Lymph # (Auto) [place] # (Auto) Eos # (Auto) Baso # (Auto) ABG pH 7.44 ABG pCO2 34.5 L ABG pO2 75 L ABG HCO3 23 ABG Total CO2 24 ABG O2 Saturation 95 ABG Base Excess -1.0 FiO2 21 Sodium Potassium Chloride Carbon Dioxide BUN Creatinine Estimated GFR BUN/Creatinine Ratio Glucose Lactate 2.4 H Calcium Magnesium Total Bilirubin Conjugated Bilirubin Unconjugated Bilirubin AST ALT Alkaline Phosphatase Total Protein Albumin Globulin Albumin/Globulin Ratio COVID-19 PCR Negative 05/24/20 05/24/20 05/24/20 05:19 05:19 05:19 WBC 6.0 RBC 3.52 L Hgb 13.1 L Hct 37.5 L MCV 106.6 H MCH 37.2 H MCHC 34.9 RDW 12.9 Plt Count 148 L Neut % (Auto) 79.0 H Lymph % (Auto) 8.5 L [place] % (Auto) 12.4 Eos % (Auto) 0.0 L Baso % (Auto) 0.1 Neut # (Auto) 4700 Lymph # (Auto) 500 L [place] # (Auto) 700 Eos # (Auto) 0 Baso # (Auto) 0 ABG pH ABG pCO2 ABG pO2 ABG HCO3 ABG Total CO2 ABG O2 Saturation ABG Base Excess FiO2 Sodium 135 L Potassium 4.2 Chloride 104 Carbon Dioxide 27 BUN 25 H Creatinine 0.57 L Estimated GFR > 60.0 BUN/Creatinine Ratio 43.9 H Glucose 174 H Lactate 1.1 Calcium 8.7 Magnesium 1.4 L Total Bilirubin 1.0 Conjugated Bilirubin 0.0 Unconjugated Bilirubin 0.7 AST 89 H ALT 43 Alkaline Phosphatase 96 Total Protein 6.4 Albumin 3.4 L Globulin 3.0 Albumin/Globulin Ratio 1.1 COVID-19 PCR Discharge Plan Discharge Plan Patient Disposition: Home Discharge comment: You were admitted to the hospital with an exacerbation of COPD. You had a mild episode of alcohol withdrawal. You were provided with resources to help you stop drinking if you desire. Please follow up with your PCP next week. Discharge orders & Medications Prescriptions: New doxycycline hyclate 100 mg Tablet 100 mg PO BID 4 Days Qty: 8 RF: 0 multivitamin [Tab-A-Shira] Tablet 1 tab PO DAILY 30 Days Qty: 30 RF: 0 prednisone 20 mg Tablet 40 mg PO DAILY 4 Days Qty: 8 RF: 0 Continued Advair HFA 230-21 mcg/actuation HFA aerosol inhaler 2 puff INHALATION BID Qty: 12 RF: 3 aspirin 81 MG tablet,chewable 81 mg PO QDAY Qty: 90 RF: 3 ipratropium-albuterol 0.5 mg-3 mg(2.5 mg base)/3 mL solution for nebulization 3 ml INHALATION QID Qty: 360 RF: 4 gabapentin [Neurontin] 300 mg capsule 600 mg PO QHS Qty: 60 RF: 12 glipizide [Glucotrol] 10 mg tablet 10 mg PO QDAY Qty: 90 RF: 3 folic acid 1 mg tablet 1 mg PO QDAY Qty: 90 RF: 3 lisinopril 5 mg tablet 5 mg PO QDAY Qty: 90 RF: 3 simvastatin [Zocor] 20 mg tablet 20 mg PO HS Qty: 90 RF: 3 Combivent Respimat 20-100 mcg/actuation mist 1 puff Inhalation QID Qty: 4 RF: 12 No Action insulin glargine 100 unit/mL (3 mL) insulin pen 35 unit SUBCUT DAILY Qty: 15 RF: 3 Follow up/Referrals: Bing Candelaria DO [Primary Care Provider] - Discharge Health Status Health Concerns: COPD exacerbation Hypomagnesemia Diet/Activity/Treatments Diet: Diet as Tolerated Activity: As tolerated Visit Report/Discharge Packet Visit Report Forms: Patient Portal/API, Stroke Signs & Symptoms Discharge Data Primary Care Provider: Bing Candelaria Attending Provider: Sal Merlos Admit Date/Time: 05/23/20 15:01 Discharges patient from system. Discharge Date/Time: 05/24/20 16:10
--- NOTE | 2020-05-24 14:24 | DIET.PN ---
Dietary Progress Note Assessment: 59y M admitted for SOB referred to nutrition for pt reported wt loss >10# unintentional. Pt reports low appetite for past month or more. Per [facility] records in PCP office pt wt 198# on 04/19/20, 193# on 05/09/20 (-2.6% in 3w), and 187# on 05/23/20 (6.6% in 1mo, severe). Pt is very concerned regarding weight loss and low appetite. Usual Day: B: black coffee c dry toast Sn: half pb&j sandwich L: skips D: skips Drinks 12oz water, 12oz apple or orange juice, and 3 glasses whiskey/7up daily Pt seeing PCP regularly r/t poor glycemic control, currently on glipizide c 35U insulin HS (recent home [facility] records show: 95, 147, 176, 143, 87, 128, 102). A1c currently 8.6 (6.7 in Oct 2019 and 9.1 in January 2020) Per hospitalist, pt experiencing tremors/dry heaves once admitted r/t etoh withdrawl, pt on CIWA c thiamin/folic acid supplementation. Pt has extensive spider veins on cheeks indicating heavy etoh use. Pt reports falling last week and hurting ribs. Pt reports being at home alone most of the time and feels isolation. Shops early am to avoid crowds. HT: 172.7cm WT: 85kg BMI: 28.5 Labs: Cr 0.57 L, TCK 1380 H, Mg 1.4 L Nutrition Diagnosis: Severe Acute on Chronic PCM r/t reduced appetite, advancement of chronic dz (DM2, COPD), heavy etoh use aeb 6.6% unintentional wt loss in 1mo (severe), pt meeting <50% EERs in 4w, pt experiencing etoh withdrawl (tremor, dry heaves) c reported daily intake of 3 whiskey 7ups, pt admitted for SOB. Interventions: 1. Discussed pt's low protein intake. Collaborated on ways to increase intake despite low appetite (egg, cottage cheese, pb). 2. Discussed moderate etoh intake and effects of over use. 3. Discussed BG management c high intake soda and juice. 4. Recc ONS Glucerna (vanilla only please) bid to support PCM Diet Order:CCD EER: 102g PRO (1.3g/kg per PCM) Monitoring/Evaluations: POs, wt. Pt to call PCP if wt continues to drop.
--- NOTE | 2020-05-24 15:40 | CM.DANOTE ---
DCP Assessment: EMR reviewed: Patient is a pleasant 59 yr old male who was admitted for COPD exacerbation and after Admission started going through Alcohol withdrawal. CM/Rn met with patient at the bedside and explained role. Patient was alert and oriented at time of CM/RN visit. CM/RN asked patient about his alcohol usage and patient stated that he drinks about a pint a night about three drinks in total and has done that since 1995. CM/RN explained alcohol withdrawal and why his body started to shake and he felt nauseated when he was withdrawaling. patient stated understanding and would like OP AA information as well as any information he can get about what happens medically when the body goes threw alcohol withdrawal. CM/Rn will speak with provider to add alcohol withdrawal information into his D/C packet. I: Medicare and medicaid Plan: D/C home with brother when medically stabel with FWW- FWW order placed at request of PT. Allyssa Appiah RN. Discharge Planning/Care Management CM Discharge Assessment Start: 05/24/20 15:38 Freq: Status: Active Protocol: Document 05/24/20 15:38 HS (Rec: 05/24/20 15:40 HS [id number]) Discharge Planning Assessment Assigned Health Careers Instructor Allyssa Appiah RN DPOA/Assigned Designee Name Zi Birmingham (Brother) Contact Information [phone] Advance Directives? No History Provided By Patient,Medical Record Has Patient been admitted in last 30 No days? Prior Living Arrangements House Household Members family Type of transporation used prior to Drives own vehicle admit Independent with ADL's Yes Is patient alert and oriented? Yes Caregiver for Another No Discharge Plan Home Transportation Arrangement family will transport home Referrals Initiated None needed Additional Comment patient would like informaiton about alcohol withdrawal and community resourses. Cm/Rn will bring these resorses to the patient prior to Cm/Rn leaving. Whiteboard Updated in Patient Room with Yes name and ext. # of Health Careers Instructor Review Status In Process Next Review Type Continued Stay Review
--- NOTE | 2020-05-24 16:19 | PC.NURSE ---
Patient discharged home via private car/brother. Patient given discharge instructions and new prescriptions were sent to [facility]. Patient was given a front wheel walker to take home. IV and telemetry were removed. Patient had no questions or concerns about discharge.
[2020-05-27 04:11] LABS: CK-BB 0 % (0); CK-MB 0 % (0-3); CK-MM 100 % (97-100); Macro Type 1 0 % (Not Observed); Macro Type 2 0 % (Not Observed)
== END 2020-05-24 16:10 | disposition home or self-care (01) ==
LOC: ED 13:39 → AC 15:01
PROVIDERS: Admitting Provider Internal Medicine; Emergency Provider Emergency Medicine; PCP Family Medicine; Referring Provider Emergency Medicine; Visit Provider Internal Medicine
DX: J44.1 Chronic obstructive pulmonary disease with (acute) exacerbation (principal); R06.02 Shortness of breath; K70.10 Alcoholic hepatitis without ascites; F10.239 Alcohol dependence with withdrawal, unspecified; M62.82 Rhabdomyolysis; E83.42 Hypomagnesemia; E86.0 Dehydration; R74.0 Nonspecific elevation of levels of transaminase and lactic acid dehydrogenase [LDH]; Z79.4 Long term (current) use of insulin; F17.210 Nicotine dependence, cigarettes, uncomplicated; E11.42 Type 2 diabetes mellitus with diabetic polyneuropathy; Z11.59 Encounter for screening for other viral diseases
CPT/HCPCS: 36415; 36600; 71046; 80048; 80053; 80076; 82550; 82553; 82805; 82962; 83605; 83735; 83880; 84145; 84484; 85025; 87040; 87635; 93005; 94640; 96361; 96365; 96366; 96367; 96368; 96372; 96375; 97161; 99284; 99406; G0378; J1650; J2060; J2405; J7613

== ENCOUNTER → 2020-08-09 10:43 | Outpatient (CLI) | payer MEDICARE, MEDICAID, SELFPAY ==
[2020-05-23 16:24] VITALS: BMI 28.5
[2020-08-09 11:51] LABS: Hemoglobin A1C% w Est Avg Glu 7.5 % (4.0-6.0)
[2020-08-09 11:52] LABS: Alanine Aminotransferase 38 IU/L (<50); Albumin Globulin Ratio 1.3 (1.0-2.8); Alkaline Phosphatase 133 U/L (38-126); Aspartate Aminotransferase 85 IU/L (17-59); BUN Creatinine Ratio 21.3 (6-22); Bilirubin Total 0.6 mg/dL (0.2-1.3); Blood Urea Nitrogen 16 mg/dL (9-20); Calcium 9.3 mg/dL (8.4-10.2); Carbon Dioxide 30 mmol/L (22-32); Chloride 104 mmol/L (98-107); Estimated Glomerular Filt Rate > 60.0 mL/min (>60); Globulin 3.1 g/dL (1.7-4.1); Glucose 126 mg/dL (80-110); HEMOLYSIS < 15 (0-50); Potassium 4.1 mmol/L (3.4-5.1); Sodium 140 mmol/L (137-145); Total Protein 7.1 g/dL (6.3-8.2)
== END ==
PROVIDERS: PCP Family Medicine; Referring Provider Family Medicine; Visit Provider Family Medicine
DX: E11.8 Type 2 diabetes mellitus with unspecified complications (principal); F10.20 Alcohol dependence, uncomplicated
CPT/HCPCS: 36415; 80053; 83036

== ENCOUNTER 2020-09-01 09:13 | Emergency (ER) | payer MEDICARE, MEDICAID, SELFPAY ==
[2020-05-23 16:24] VITALS: BMI 28.5
[2020-09-01] VITALS (16 sets, daily range): BP systolic 119–157; BP diastolic 65–79; PULSE 79–103; RESP 11–26; TEMP 36.9; O2SAT 94–100; BMI 29.6
--- NOTE | 2020-09-01 09:20 | DI.RAD.S_ITS ---
PROCEDURE: XR CHEST 1V INDICATIONS: weakness short of breath TECHNIQUE: One view of the chest was acquired. COMPARISON: [facility], CR, XR CHEST 2V, 05/23/2020, 12:30. FINDINGS: Surgical changes and devices: None. Lungs and pleura: Lungs are clear. No pleural effusions or pneumothorax. Mediastinum: Mediastinal contours appear normal. Heart size is normal. Bones and chest wall: No suspicious bony lesions. Overlying soft tissues appear unremarkable. IMPRESSION: No evidence acute pulmonary process. Dictated by: Simón Maguire M.D. on 09/01/2020 at 10:00 Approved by: Simón Maguire M.D. on 09/01/2020 at 10:00
--- NOTE | 2020-09-01 09:29 | ED_ITS ---
HPI - SOB/Dyspnea General Chief Complaint: Shortness of Breath/Dyspnea Stated Complaint: weakness shortness of breath Time Seen by Provider: 09/01/20 09:17 Source: patient Mode of arrival: Ambulatory History of Present Illness HPI Narrative: Patient complains of cough cold congestion with dyspnea for past 6 weeks. Has been doing his home inhalers 4 times a day. Without relief. Admitted here for COPD exacerbation April 2020. Patient does continue to smoke. Is not on home oxygen at home. Denies any chest pain. No fever chills. Is not on steroids. Complaints of productive cough. No hematemesis or hemoptysis. Starting to feel more weak with the legs with walking. MD Complaint: shortness of breath and cough Related Data Previous Rx's Medication Instructions Recorded aspirin 81 mg PO QDAY #90 ctb 12/17/16 ipratropium 20 mcg-albuterol 100 1 puff INHALATION QID #4 gram 02/01/20 mcg/actuation mist for inhalation insulin glargine 100 unit/mL (3 35 unit SUBCUT DAILY #15 ml 05/24/20 mL) subcutaneous pen folic acid 1 mg tablet 1 mg PO QDAY #90 tab 06/01/20 gabapentin 300 mg capsule 600 mg PO QHS #60 cap 06/01/20 glipizide 10 mg tablet 10 mg PO QDAY #90 tab 06/01/20 lisinopril 5 mg tablet 5 mg PO QDAY #90 tab 06/01/20 simvastatin 20 mg tablet 20 mg PO HS #90 tab 06/01/20 albuterol sulfate 2.5 mg INHALATION Q4-6H PRN #360 ml 06/09/20 fluticasone propionate 230 2 puff INHALATION BID #12 gram 08/09/20 mcg-salmeterol 21 mcg/actuation HFA inhaler Allergies Allergy/AdvReac Type Severity Reaction Status Date / Time Toxey And Derivatives Allergy Severe hives Verified 09/01/20 09:23 [CITRUS AND DERIVATIVES] chocolate flavor Allergy Intermediate HIVES Verified 09/01/20 09:23 [CHOCOLATE FLAVOR] codeine [CODEINE] AdvReac Intermediate NAUSEA Verified 09/01/20 09:23 Review of Systems Review of Systems Narrative: GENERAL: Denies chills, fatigue, malaise, fever, sweats. HEENT: Denies sinus pain, ear pain, sore throat, difficulty swallowing RESPIRATORY: Complains dyspnea, cough CARDIOVASCULAR: Denies chest pain, palpitations, edema, GASTROINTESTINAL: Denies nausea, vomiting, abdominal pain, diarrhea, constipation, melena. : Denies dysuria, frequency, hematuria MUSCULOSKELETAL: denies muscle or bony pain SKIN: Denies rash, skin lesions NEUROLOGIC: Denies weakness, headache, numbness, change in speech, confusion PSYCHIATRIC: No SI or HI or hallucinations ROS Unobtainable: All systems reviewed & are unremarkable except as noted in HPI and below Patient History Medical History Alcoholism (Chronic) C7 radiculopathy (Chronic) Colon polyps (Resolved) Diabetes mellitus type 2, insulin dependent (Chronic) Diabetic neuropathy (Acute) Type 2 diabetes mellitus with complications (Acute) Surgical History History of partial colectomy (Resolved) History of prostatectomy (Resolved) S/P hernia repair (Resolved) Family History Mother Colon cancer Social History marital status: unmarried,single number of children: 0 household members: family lives independently: Yes education level: high school occupational status: unemployed and disabled Smoking Status: Current every day smoker alcohol intake: current substance use type: does not use Smoking Status: Current every day smoker tobacco type: cigarettes alcohol intake frequency: 0-2 drinks per day Alcohol type: hard liquor Substance Use Type: does not use Exam Narrative Exam Narrative: GENERAL: patient appears stated age. Well-nourished, well- developed patient, in no distress, not toxic not dyspneic HEAD: Normocephalic. EYES: Pupils equal round and reactive. No scleral icterus. No injection no discharge ENT: Mucous membranes moist. No drooling no tongue elevation no trismus no malocclusion NECK: Trachea midline. Non tender CARDIOVASCULAR: Regular rate and rhythm without murmurs, gallops, or rubs. RESPIRATORY: Clear to auscultation. Breath sounds equal bilaterally. Diminished lung sounds. No wheezes, rales, or rhonchi. Speaks full sentences GASTROINTESTINAL: Abdomen soft, non-tender, nondistended. EXTREMITIES: No gross deformities. BACK: Nontender without deformity or crepitance. No flank tenderness. NEURO: AOx4. SKIN: Warm and dry PSYCH: Not anxious, is cooperative Initial Vital Signs Initial Vital Signs: Vital Signs Pulse Rate 103 H 09/01/20 09:19 Blood Pressure 119/79 09/01/20 09:19 Pulse Oximetry 98 09/01/20 09:19 Course Course Course Narrative: Spoke with hospitalist, there is no beds available at this time. Patient will need transfer. Emergency department at capacity 1:[address] Narayanan again, patient has already been accepted to [facility], at this time continue with transfer per Dr. Narayanan Orders Ordered: Discontinued Medications Albuterol/Ipratropium (Duoneb) 3 ml INH NOW ONE Stop: 09/01/20 12:29 Last Admin: 09/01/20 13:33 Dose: 3 ml Documented by: NATIVIDAD Sodium Chloride (Normal Saline 0.9%) 1,000 mls @ 1,000 mls/hr IV BOLUS ONE Stop: 09/01/20 13:15 Last Infusion: 09/01/20 14:09 Dose: 0 mls/hr Documented by: Admin: 09/01/20 12:24 Dose: 1,000 mls/hr Documented by: NATIVIDAD Ceftriaxone Sodium/Dextrose (Rocephin) 1 gm in 50 mls @ 100 mls/hr IV NOW ONE Stop: 09/01/20 14:02 Last Infusion: 09/01/20 14:16 Dose: 0 mls/hr Documented by: Admin: 09/01/20 13:43 Dose: 100 mls/hr Documented by: NATIVIDAD Azithromycin 500 mg/ Dextrose 250 mls @ 250 mls/hr IV NOW ONE Stop: 09/01/20 13:34 Last Admin: 09/01/20 14:12 Dose: 250 mls/hr Documented by: NATIVIDAD Methylprednisolone (Solu-Medrol 125 Mg Vial) 125 mg IV NOW ONE Stop: 09/01/20 09:19 Last Admin: 09/01/20 09:37 Dose: 125 mg Documented by: COY Ondansetron HCl (Zofran) 4 mg IV NOW ONE Stop: 09/01/20 14:24 Last Admin: 09/01/20 14:25 Dose: 4 mg Documented by: NATIVIDAD Reevaluation(s) Reevaluation #1: Spoke with patient and he understands reason for transfer. There was no beds here. Feeling better with breathing treatments. Time: 13:34 Consultations Consultation #1: Spoke with [facility] dr li.... Will accept patient. Start Zithromax and Rocephin here. Spoke with him regarding EKG findi ngs and will send the past 2 EKGs as well. There are no changes. I disagree with reading on today's EKG as acute DE. Patient has no chest pain Time: 12:59 Vital Signs Vital signs: Vital Signs - 8 hr 09/01/20 09:19 09/01/20 09:20 09/01/20 09:31 Temperature 98.5 F Pulse Rate 103 H 100 H 98 H Respiratory Rate 22 Blood Pressure 119/79 119/79 Pulse Oximetry 98 100 95 09/01/20 10:00 09/01/20 10:30 09/01/20 11:00 Temperature Pulse Rate 82 80 80 Respiratory Rate 16 19 18 Blood Pressure Pulse Oximetry 98 97 95 09/01/20 11:22 09/01/20 11:23 09/01/20 11:30 Temperature Pulse Rate 80 79 79 Respiratory Rate 14 17 11 L Blood Pressure 131/65 131/71 Pulse Oximetry 95 95 95 09/01/20 12:00 09/01/20 12:30 09/01/20 12:51 Temperature Pulse Rate 98 H 85 Respiratory Rate 26 H 24 Blood Pressure 134/75 157/73 H Pulse Oximetry 96 95 94 09/01/20 13:00 Temperature Pulse Rate 90 Respiratory Rate 17 Blood Pressure 143/69 H Pulse Oximetry 96 MDM - SOB/Dyspnea Differential Diagnosis Differential diagnosis: Likely acute exacerbation of chronic obstructive airways disease and community acquired pneumonia Lab Data Attestation: I reviewed the patient's lab results. Result diagrams: 09/01/20 09:22 09/01/20 09:22 Labs: Lab Results 09/01/20 09/01/20 09/01/20 Range/Units 09:22 09:22 09:22 WBC 6.3 (4.5-11.0) X10^3/uL RBC 3.79 L (4.5-5.9) X10^6/uL Hgb 13.8 (13.5-17.5) g/dL Hct 40.4 L (41-53) % MCV 106.8 H (80-100) fL MCH 36.5 H (26-34) PG MCHC 34.1 (30-36) % RDW 14.2 (11.6-14.8) % Plt Count 146 L (150-400) X10^3/uL Neut % (Auto) 75.2 H (50-75) % Lymph % (Auto) 11.9 L (25-40) % Dickenson % (Auto) 11.2 (3-14) % Eos % (Auto) 1.3 L (2-4) % Baso % (Auto) 0.4 (0-2) % Neut # (Auto) 4700 (6544-4074) /uL Lymph # (Auto) 700 L (8411-9826) /uL Dickenson # (Auto) 700 (0-900) /uL Eos # (Auto) 100 (0-450) /uL Baso # (Auto) 0 (0-100) /uL Sodium 137 (137-145) mmol/L Potassium 3.7 (3.4-5.1) mmol/L Chloride 101 (98-107) mmol/L Carbon Dioxide 30 (22-32) mmol/L BUN 23 H (9-20) mg/dL Creatinine 0.74 (0.66-1.25) mg/dL Estimated GFR > 60.0 (>60) mL/min BUN/Creatinine Ratio 31.1 H (6-22) Glucose 83 (80-110) mg/dL Lactate (0.7-2.1) mmol/L Calcium 9.3 (8.4-10.2) mg/dL Magnesium 1.6 (1.6-2.3) mg/dL Total Bilirubin 1.0 (0.2-1.3) mg/dL AST 175 H (17-59) IU/L ALT 76 H (<50) IU/L Alkaline Phosphatase 202 H (38-126) U/L Total Creatine Kinase 222 H (55-170) U/L CK-MB (CK-2) 4.02 H (<2.37) ng/mL CK-MB (CK-2) Rel Index 1.8 (1.5-5.0) % Troponin I < 0.012 (0.01-0.034) ng/mL Total Protein 7.7 (6.3-8.2) g/dL Albumin 4.3 (3.5-5.0) g/dL Globulin 3.4 (1.7-4.1) g/dL Albumin/Globulin Ratio 1.3 (1.0-2.8) Procalcitonin 0.39 (<0.5) ng/mL Chlamy pneumoniae PCR (Not Detect) Adenovirus (PCR) (Not Detect) B.parapertussis DNA PCR (Not Detect) Coronavirus OC43 (PCR) (Not Detect) Coronavirus HKU1 (PCR) (Not Detect) Coronavirus 229E (PCR) (Not Detect) COVID-19 PCR (Negative) Coronavirus NL63 (PCR) (Not Detect) Human Metapneumovir PCR (Not Detect) Influenza Type A (PCR) (Not Detect) Influenza Type B (PCR) (Not Detect) M. pneumoniae (PCR) (Not Detect) Parainfluenza 1 (PCR) (Not Detect) Parainfluenza 2 (PCR) (Not Detect) Parainfluenza 3 (PCR) (Not Detect) Parainfluenza 4 (PCR) (Not Detect) RSV (PCR) (Not Detect) Entero/Rhino (PCR) (Not Detect) 09/01/20 09/01/20 09/01/20 Range/Units 09:22 10:40 12:05 WBC (4.5-11.0) X10^3/uL RBC (4.5-5.9) X10^6/uL Hgb (13.5-17.5) g/dL Hct (41-53) % MCV (80-100) fL MCH (26-34) PG MCHC (30-36) % RDW (11.6-14.8) % Plt Count (150-400) X10^3/uL Neut % (Auto) (50-75) % Lymph % (Auto) (25-40) % Dickenson % (Auto) (3-14) % Eos % (Auto) (2-4) % Baso % (Auto) (0-2) % Neut # (Auto) (4923-5031) /uL Lymph # (Auto) (4730-7218) /uL Dickenson # (Auto) (0-900) /uL Eos # (Auto) (0-450) /uL Baso # (Auto) (0-100) /uL Sodium (137-145) mmol/L Potassium (3.4-5.1) mmol/L Chloride (98-107) mmol/L Carbon Dioxide (22-32) mmol/L BUN (9-20) mg/dL Creatinine (0.66-1.25) mg/dL Estimated GFR (>60) mL/min BUN/Creatinine Ratio (6-22) Glucose (80-110) mg/dL Lactate 3.3 H 2.0 (0.7-2.1) mmol/L Calcium (8.4-10.2) mg/dL Magnesium (1.6-2.3) mg/dL Total Bilirubin (0.2-1.3) mg/dL AST (17-59) IU/L ALT (<50) IU/L Alkaline Phosphatase (38-126) U/L Total Creatine Kinase (55-170) U/L CK-MB (CK-2) (<2.37) ng/mL CK-MB (CK-2) Rel Index (1.5-5.0) % Troponin I (0.01-0.034) ng/mL Total Protein (6.3-8.2) g/dL Albumin (3.5-5.0) g/dL Globulin (1.7-4.1) g/dL Albumin/Globulin Ratio (1.0-2.8) Procalcitonin (<0.5) ng/mL Chlamy pneumoniae PCR (Not Detect) Adenovirus (PCR) (Not Detect) B.parapertussis DNA PCR (Not Detect) Coronavirus OC43 (PCR) (Not Detect) Coronavirus HKU1 (PCR) (Not Detect) Coronavirus 229E (PCR) (Not Detect) COVID-19 PCR Negative (Negative) Coronavirus NL63 (PCR) (Not Detect) Human Metapneumovir PCR (Not Detect) Influenza Type A (PCR) (Not Detect) Influenza Type B (PCR) (Not Detect) M. pneumoniae (PCR) (Not Detect) Parainfluenza 1 (PCR) (Not Detect) Parainfluenza 2 (PCR) (Not Detect) Parainfluenza 3 (PCR) (Not Detect) Parainfluenza 4 (PCR) (Not Detect) RSV (PCR) (Not Detect) Entero/Rhino (PCR) (Not Detect) 09/01/20 Range/Units 12:06 WBC (4.5-11.0) X10^3/uL RBC (4.5-5.9) X10^6/uL Hgb (13.5-17.5) g/dL Hct (41-53) % MCV (80-100) fL MCH (26-34) PG MCHC (30-36) % RDW (11.6-14.8) % Plt Count (150-400) X10^3/uL Neut % (Auto) (50-75) % Lymph % (Auto) (25-40) % Dickenson % (Auto) (3-14) % Eos % (Auto) (2-4) % Baso % (Auto) (0-2) % Neut # (Auto) (3726-8502) /uL Lymph # (Auto) (5967-0455) /uL Dickenson # (Auto) (0-900) /uL Eos # (Auto) (0-450) /uL Baso # (Auto) (0-100) /uL Sodium (137-145) mmol/L Potassium (3.4-5.1) mmol/L Chloride (98-107) mmol/L Carbon Dioxide (22-32) mmol/L BUN (9-20) mg/dL Creatinine (0.66-1.25) mg/dL Estimated GFR (>60) mL/min BUN/Creatinine Ratio (6-22) Glucose (80-110) mg/dL Lactate (0.7-2.1) mmol/L Calcium (8.4-10.2) mg/dL Magnesium (1.6-2.3) mg/dL Total Bilirubin (0.2-1.3) mg/dL AST (17-59) IU/L ALT (<50) IU/L Alkaline Phosphatase (38-126) U/L Total Creatine Kinase (55-170) U/L CK-MB (CK-2) (<2.37) ng/mL CK-MB (CK-2) Rel Index (1.5-5.0) % Troponin I (0.01-0.034) ng/mL Total Protein (6.3-8.2) g/dL Albumin (3.5-5.0) g/dL Globulin (1.7-4.1) g/dL Albumin/Globulin Ratio (1.0-2.8) Procalcitonin (<0.5) ng/mL Chlamy pneumoniae PCR Not detected (Not Detect) Adenovirus (PCR) Not detected (Not Detect) B.parapertussis DNA PCR Not detected (Not Detect) Coronavirus OC43 (PCR) Not detected (Not Detect) Coronavirus HKU1 (PCR) Not detected (Not Detect) Coronavirus 229E (PCR) Not detected (Not Detect) COVID-19 PCR (Negative) Coronavirus NL63 (PCR) Not detected (Not Detect) Human Metapneumovir PCR Not detected (Not Detect) Influenza Type A (PCR) Not detected (Not Detect) Influenza Type B (PCR) Not detected (Not Detect) M. pneumoniae (PCR) Not detected (Not Detect) Parainfluenza 1 (PCR) Not detected (Not Detect) Parainfluenza 2 (PCR) Not detected (Not Detect) Parainfluenza 3 (PCR) Not detected (Not Detect) Parainfluenza 4 (PCR) Not detected (Not Detect) RSV (PCR) Not detected (Not Detect) Entero/Rhino (PCR) Not detected (Not Detect) Imaging Data Chest x-ray: Radiologist's Impression: [address] [address] XRay Report Signed Patient: Charanjit [place] LMR#: [id number] : 8Acct:[id number] Age/Sex: 60 / MDate of Service: 09/01/20 Loc: ED Accession Number: [id number] Procedure: XR chest 1V Ordering Provider: Randall Austin MD PROCEDURE: XR CHEST 1V INDICATIONS: weakness short of breath TECHNIQUE: One view of the chest was acquired. COMPARISON: [facility] , XR CHEST 2V, 05/23/2020, 12:30. FINDINGS: Surgical changes and devices: None. Lungs and pleura: Lungs are clear. No pleural effusions or pneumothorax. Mediastinum: Mediastinal contours appear normal. Heart size is normal. Bones and chest wall: No suspicious bony lesions. Overlying soft tissues appear unremarkable. IMPRESSION: No evidence acute pulmonary process. Dictated by: Simón Maguire M.D. on 09/01/2020 at 10:00 Approved by: Simón Maguire M.D. on 09/01/2020 at 10:00 ECG Data Attestation: I personally reviewed and interpreted this ECG as follows: Interpretation: I have reviewed EKG from today 11:[address] elevation. There is no changes from 05/16/2020 at 12:30 p.m. same pattern. Also there is an EKG November 27, 2019 at 10:26 a.m.. No changes. MDM Narrative Medical decision making narrative: Appropriate for transfer. No beds here. Patient is stable. Discharge Plan Departure Patient Disposition: [facility] Clinical Impression: COPD (chronic obstructive pulmonary disease) Qualifiers: COPD type: COPD with acute exacerbation Qualified Code(s): J44.1 - Chronic obstructive pulmonary disease with (acute) exacerbation Discharge Date/Time: 09/01/20 15:04 Prescriptions: No Action Advair HFA 230-21 mcg/actuation HFA aerosol inhaler 2 puff INHALATION BID Qty: 12 RF: 3 aspirin 81 MG tablet,chewable 81 mg PO QDAY Qty: 90 RF: 3 Combivent Respimat 20-100 mcg/actuation mist 1 puff Inhalation QID Qty: 4 RF: 12 insulin glargine 100 unit/mL (3 mL) insulin pen 35 unit SUBCUT DAILY Qty: 15 RF: 3 folic acid 1 mg tablet 1 mg PO QDAY Qty: 90 RF: 3 gabapentin [Neurontin] 300 mg capsule 600 mg PO QHS Qty: 60 RF: 12 glipizide [Glucotrol] 10 mg tablet 10 mg PO QDAY Qty: 90 RF: 3 lisinopril 5 mg tablet 5 mg PO QDAY Qty: 90 RF: 3 simvastatin [Zocor] 20 mg tablet 20 mg PO HS Qty: 90 RF: 3 albuterol sulfate 2.5 mg /3 mL (0.083 %) solution for nebulization 2.5 mg INHALATION Q4-6H PRN (Reason: shortness of breath or wheezing) Qty: 360 RF: 1 Referrals: Bing Candelaria DO [Primary Care Provider] -
[2020-09-01 09:33] LABS: Add Manual Diff / Slide Review NO; Basophils Absolute Auto 0 /uL (0-100); Basophils Percent Auto 0.4 % (0-2); Eosinophils Absolute Auto 100 /uL (0-450); Eosinophils Percent Auto 1.3 % (2-4); Hematocrit 40.4 % (41-53); Hemoglobin 13.8 g/dL (13.5-17.5); Lymphocytes Absolute Auto 700 /uL (1100-4500); Lymphocytes Percent Auto 11.9 % (25-40); Mean Corpuscular HGB Conc 34.1 % (30-36); Mean Corpuscular Hemoglobin 36.5 PG (26-34); Mean Corpuscular Volume 106.8 fL (80-100); Monocytes Absolute Auto 700 /uL (0-900); Monocytes Percent Auto 11.2 % (3-14); Neutrophils Absolute Auto 4700 /uL (1500-7000); Neutrophils Percent Auto 75.2 % (50-75); Platelet Count 146 X10^3/uL (150-400); Red Blood Cell Count 3.79 X10^6/uL (4.5-5.9); Red Cell Distribution Width 14.2 % (11.6-14.8); White Blood Cell Count 6.3 X10^3/uL (4.5-11.0)
[2020-09-01] MEDS: methylPREDNISolone 125 MG/2 ML VIAL IV (09:37)
[2020-09-01 09:48] LABS: Alanine Aminotransferase 76 IU/L (<50); Albumin 4.3 g/dL (3.5-5.0); Albumin Globulin Ratio 1.3 (1.0-2.8); Alkaline Phosphatase 202 U/L (38-126); Aspartate Aminotransferase 175 IU/L (17-59); BUN Creatinine Ratio 31.1 (6-22); Blood Urea Nitrogen 23 mg/dL (9-20); Calcium 9.3 mg/dL (8.4-10.2); Carbon Dioxide 30 mmol/L (22-32); Chloride 101 mmol/L (98-107); Creatine Kinase 222 U/L (55-170); Estimated Glomerular Filt Rate > 60.0 mL/min (>60); Globulin 3.4 g/dL (1.7-4.1); Glucose 83 mg/dL (80-110); HEMOLYSIS < 15 (0-50); Magnesium 1.6 mg/dL (1.6-2.3); Potassium 3.7 mmol/L (3.4-5.1); Sodium 137 mmol/L (137-145); Total Protein 7.7 g/dL (6.3-8.2)
[2020-09-01 09:49] LABS: Lactate (Lactic Acid) 3.3 mmol/L (0.7-2.1)
--- NOTE | 2020-09-01 09:58 | PC.NURSE ---
Walked pt with pulse oximetry. SPO2 97% on room air with walking with walker. RR 24.
[2020-09-01 10:00] LABS: Troponin I < 0.012 ng/mL (0.01-0.034)
[2020-09-01 10:03] LABS: CKMB % Relative Index 1.8 % (1.5-5.0); Creatine Kinase MB 4.02 ng/mL (<2.37)
[2020-09-01 10:04] LABS: Procalcitonin 0.39 ng/mL (<0.5)
[2020-09-01 11:28] LABS: Reflexed Lactate in 2 Hours Y
[2020-09-01 12:15] LABS: COVID19 -Nasal RAPID Negative (Negative)
[2020-09-01] MEDS: SODIUM CHLORIDE 0.9% 1,000 ML 1000 ML IV (12:24)
[2020-09-01] MEDS: ALBUTEROL/IPRATROPIUM 3 ML AMPUL INH (13:33)
[2020-09-01] MEDS: CEFTRIAXONE 1 GM/50 ML FROZ.PIGGY IV (13:43)
[2020-09-01 14:11] LABS: Adenovirus Not Detected (Not Detect); Bordetella pertussis Not Detected (Not Detect); Chlamydophila pneumoniae Not Detected (Not Detect); Coronavirus 229E Not Detected (Not Detect); Coronavirus HKU1 Not Detected (Not Detect); Coronavirus NL 63 Not Detected (Not Detect); Coronavirus OC43 Not Detected (Not Detect); Human Metapneumovirus Not Detected (Not Detect); Human Rhinovirus/Enterovirus Not Detected (Not Detect); Influenza A Not Detected (Not Detect); Influenza B Not Detected (Not Detect); Mycoplasma pneumoniae Not Detected (Not Detect); Parainfluenza Virus 1 Not Detected (Not Detect); Parainfluenza Virus 2 Not Detected (Not Detect); Parainfluenza Virus 3 Not Detected (Not Detect); Parainfluenza Virus 4 Not Detected (Not Detect); Respiratory Syncytial Virus Not Detected (Not Detect)
[2020-09-01] MEDS: AZITHROMYCIN 500 MG in DEXTROSE 5% IN WATER 250 ML IV (14:12)
[2020-09-01] MEDS: ONDANSETRON 4 MG/2 ML INJ IV (14:25)
--- NOTE | 2020-09-17 10:50 | PC.NURSE ---
Patient's Azithromycin were stopped at 1504.
== END 2020-09-01 15:04 | disposition short-term general hospital (02) ==
PROVIDERS: Emergency Provider Emergency Medicine; PCP Family Medicine
DX: J44.1 Chronic obstructive pulmonary disease with (acute) exacerbation (principal); R05 Cough; R06.00 Dyspnea, unspecified
CPT/HCPCS: 36415; 71045; 80053; 82550; 82553; 83605; 83735; 84145; 84484; 85025; 87040; 87633; 87635; 93005; 94640; 96361; 96365; 96367; 96375; 99284; 99285; J2405; J2930

== ENCOUNTER → 2020-10-05 08:34 | Outpatient (CLI) | payer MEDICARE, MEDICAID, SELFPAY ==
[2020-05-23 16:24] VITALS: BMI 28.5
--- NOTE | 2020-10-05 08:35 | DI.NM.S_ITS ---
PROCEDURE: NM GASTRIC EMPTYING STUDY RADIOPHARMACEUTICAL: 1 mCi Tc-99m sulfur colloid in an egg sandwich. INDICATIONS: suspect gastroparesis TECHNIQUE: A Tc-99m labeled sulfur colloid labeled egg sandwich or oatmeal was served to the patient. Anterior and posterior planar images of the abdomen were obtained at 0 minutes and 30 minutes, then at hourly intervals up to 4 hours. The patient was upright and ambulating during the interval. COMPARISON: [facility], CT, CT ABDOMEN PELVIS WITH CONTRAST, 09/01/2020, 20:31. FINDINGS: The stomach has normal size, morphology, and position. There is normal emptying of solid gastric contents from the stomach by visual inspection. No gastroesophageal reflux is visualized. The percentage of tracer retained at specific time points are as follows: Time point Percent gastric retention Normal range 30 minutes 73% 70% or more 1 hour 41% 30% to 90% 2 hours 21% 60% or less 3 hours 14% 30% or less 4 hours 10% 10% or less IMPRESSION: Normal gastric emptying study. Dictated by: Crissy Beckman M.D. on 10/05/2020 at 14:04 Approved by: Crissy Beckman M.D. on 10/05/2020 at 14:07
== END ==
PROVIDERS: PCP Family Medicine; Referring Provider Family Medicine; Visit Provider Family Medicine
DX: E11.8 Type 2 diabetes mellitus with unspecified complications (principal); R11.0 Nausea
CPT/HCPCS: 78264; A9541

== ENCOUNTER → 2020-12-22 09:24 | Outpatient (CLI) | payer MEDICARE, MEDICAID, SELFPAY ==
[2020-05-23 16:24] VITALS: BMI 28.5
[2020-12-22 10:08] LABS: Add Manual Diff / Slide Review NO; Basophils Absolute Auto 0 /uL (0-100); Eosinophils Absolute Auto 100 /uL (0-450); Hematocrit 40.3 % (41-53); Hemoglobin 13.7 g/dL (13.5-17.5); Lymphocytes Absolute Auto 900 /uL (1100-4500); Lymphocytes Percent Auto 21.7 % (25-40); Mean Corpuscular Hemoglobin 35.9 PG (26-34); Mean Corpuscular Volume 105.5 fL (80-100); Monocytes Absolute Auto 500 /uL (0-900); Monocytes Percent Auto 13.6 % (3-14); Neutrophils Absolute Auto 2400 /uL (1500-7000); Neutrophils Percent Auto 61.7 % (50-75); Platelet Count 128 X10^3/uL (150-400); Red Blood Cell Count 3.82 X10^6/uL (4.5-5.9); Red Cell Distribution Width 14.6 % (11.6-14.8); White Blood Cell Count 3.9 X10^3/uL (4.5-11.0)
[2020-12-22 10:20] LABS: Alanine Aminotransferase 36 IU/L (<50); Albumin Globulin Ratio 1.3 (1.0-2.8); Alkaline Phosphatase 165 U/L (38-126); Aspartate Aminotransferase 91 IU/L (17-59); BUN Creatinine Ratio 20.9 (6-22); Bilirubin Total 0.5 mg/dL (0.2-1.3); Blood Urea Nitrogen 14 mg/dL (9-20); Calcium 9.4 mg/dL (8.4-10.2); Carbon Dioxide 26 mmol/L (22-32); Chloride 108 mmol/L (98-107); Estimated Glomerular Filt Rate > 60.0 mL/min (>60); Globulin 3.2 g/dL (1.7-4.1); Glucose 165 mg/dL (80-110); HEMOLYSIS < 15 (0-50); Lipase 182 U/L (23-300); Potassium 3.7 mmol/L (3.4-5.1); Sodium 141 mmol/L (137-145); Total Protein 7.2 g/dL (6.3-8.2)
== END ==
PROVIDERS: PCP Family Medicine; Referring Provider Family Medicine; Visit Provider Nurse Practitioner
DX: F10.20 Alcohol dependence, uncomplicated (principal); E11.8 Type 2 diabetes mellitus with unspecified complications; R11.2 Nausea with vomiting, unspecified
CPT/HCPCS: 36415; 80053; 83036; 83690; 85025

== ENCOUNTER 2020-12-27 11:06 | Emergency (ER) | payer MEDICARE, MEDICAID, SELFPAY ==
[2020-05-23 16:24] VITALS: BMI 28.5
[2020-12-27 11:29] VITALS: BP 152/65; PULSE 86; RESP 16; TEMP 36.9; O2SAT 99; BMI 29.1
[2020-12-27 11:56] LABS: COVID19 -Nasal RAPID Negative (Negative)
--- NOTE | 2020-12-27 13:08 | DI.RAD.S_ITS ---
PROCEDURE: XR CHEST 1V INDICATIONS: Right-sided chest pain TECHNIQUE: One view of the chest was acquired. COMPARISON: [facility], CR, XR CHEST 1 VIEW, 09/01/2020, 15:47. [facility], CR, XR CHEST 2V, 05/23/2020, 12:30. [facility], CR, XR CHEST 2V, 01/26/2020, 10:19. [facility], CR, XR CHEST 2V, 12/18/2019, 9:28. [facility], CR, XR CHEST 1V, 09/01/2020, 9:42. FINDINGS: Surgical changes and devices: None. Lungs and pleura: Lungs are clear. No pleural effusions or pneumothorax. Mediastinum: Mediastinal contours appear normal. Heart size is normal. Bones and chest wall: No suspicious bony lesions. Overlying soft tissues appear unremarkable. IMPRESSION: No acute cardiopulmonary disease. Dictated by: Crissy Beckman M.D. on 12/27/2020 at 13:57 Approved by: Crissy Beckman M.D. on 12/27/2020 at 13:58
--- NOTE | 2020-12-27 13:10 | ED_ITS ---
HPI - Nausea/Vomiting/Diarrhea General Chief complaint: Weakness Stated complaint: dry heaving/weakness of legs x3days Time Seen by Provider: 12/27/20 12:52 Source: patient History of Present Illness HPI Narrative: Patient complains of daily nausea and vomiting, nonbloody. No diarrhea. No constipation. Denies any abdominal pain. Complains of occasional right-sided chest pain worse with vomiting. No fever chills no cough cold congestion. No dyspnea. No sick contacts. No black stools bloody stools. Related Data Previous Rx's Medication Instructions Recorded aspirin 81 mg PO QDAY #90 ctb 12/17/16 ipratropium 20 mcg-albuterol 100 1 puff INHALATION QID #4 gram 02/01/20 mcg/actuation mist for inhalation insulin glargine 100 unit/mL (3 35 unit SUBCUT DAILY #15 ml 05/24/20 mL) subcutaneous pen folic acid 1 mg tablet 1 mg PO QDAY #90 tab 06/01/20 gabapentin 300 mg capsule 600 mg PO QHS #60 cap 06/01/20 glipizide 10 mg tablet 10 mg PO QDAY #90 tab 06/01/20 lisinopril 5 mg tablet 5 mg PO QDAY #90 tab 06/01/20 simvastatin 20 mg tablet 20 mg PO HS #90 tab 06/01/20 albuterol sulfate 2.5 mg INHALATION Q4-6H PRN #360 ml 06/09/20 fluticasone propionate 230 2 puff INHALATION BID #12 gram 08/09/20 mcg-salmeterol 21 mcg/actuation HFA inhaler ondansetron 4 mg PO Q8H PRN #10 tab 12/27/20 Allergies Allergy/AdvReac Type Severity Reaction Status Date / Time [place] And Derivatives Allergy Severe hives Verified 09/01/20 09:23 [CITRUS AND DERIVATIVES] chocolate flavor Allergy Intermediate HIVES Verified 09/01/20 09:23 [CHOCOLATE FLAVOR] codeine [CODEINE] AdvReac Intermediate NAUSEA Verified 09/01/20 09:23 Review of Systems Review of Systems Narrative: GENERAL: Denies chills, fatigue, malaise, fever, sweats. HEENT: Denies sinus pain, ear pain, sore throat RESPIRATORY: Denies dyspnea, cough CARDIOVASCULAR: Complains chest pain, denies palpitations GASTROINTESTINAL: Complaint nausea, vomiting, denies abdominal pain : Denies dysuria, frequency, hematuria MUSCULOSKELETAL: denies muscle or bony pain SKIN: Denies rash, skin lesions NEUROLOGIC: Denies weakness, numbness ROS Unobtainable: All systems reviewed & are unremarkable except as noted in HPI and below Patient History Medical History (Updated 12/27/20 @ 15:31 by Randall Austin MD) Alcoholism C7 radiculopathy Colon polyps Diabetes mellitus type 2, insulin dependent Diabetic neuropathy Type 2 diabetes mellitus with complications Surgical History History of partial colectomy History of prostatectomy S/P hernia repair Family History Mother Colon cancer Social History marital status: unmarried,single number of children: 0 household members: family lives independently: Yes education level: high school occupational status: unemployed and disabled Smoking Status: Current every day smoker alcohol intake: current substance use type: does not use Smoking Status: Current every day smoker tobacco type: cigarettes alcohol intake frequency: 0-2 drinks per day Alcohol type: hard liquor Substance Use Type: does not use Exam Narrative Exam Narrative: GENERAL: in no distress, not toxic not dyspneic HEAD: Normocephalic. EYES: Pupils equal round No scleral icterus. No injection no discharge ENT: Mucous membranes moist. NECK: Trachea midline. CARDIOVASCULAR: Regular rate and rhythm without murmurs, nontender right chest. RESPIRATORY: Clear to auscultation. Breath sounds equal bilaterally. No wheezes, rales, or rhonchi. GASTROINTESTINAL: Abdomen soft, non-tender, no peritoneal signs, bowel sounds present. EXTREMITIES: No gross deformities. BACK: No flank tenderness. NEURO: AOx4. SKIN: Warm and dry PSYCH: Not anxious, is cooperative Initial Vital Signs Initial Vital Signs: Vital Signs Temperature 98.4 F 12/27/20 11:29 Pulse Rate 86 12/27/20 11:29 Respiratory Rate 16 12/27/20 11:29 Blood Pressure 152/65 H 12/27/20 11:29 Pulse Oximetry 99 12/27/20 11:29 Course Orders Ordered: ED Orders 12/27/20 11:35 COVID19 Stat 12/27/20 13:08 XR chest 1V Stat EKG-12 Lead Stat 12/27/20 13:21 Complete Blood Count AUTO DIFF Stat Comprehensive Metabolic Panel Stat Lipase Stat Troponin & CK Cardiac Panel Stat 12/27/20 14:32 CT abdomen pelvis w con Stat Vital Signs Vital signs: Vital Signs - 8 hr 12/27/20 11:29 12/27/20 13:30 12/27/20 14:00 Temperature 98.4 F Pulse Rate 86 83 85 Respiratory Rate 16 24 18 Blood Pressure 152/65 H Pulse Oximetry 99 97 96 MDM - Nausea/Vomiting/Diarrhea Differential Diagnosis Differential diagnosis: Likely gastroenteritis and dehydration Medical Records Attestation: I reviewed the patient's medical records. Lab Data Attestation: I reviewed the patient's lab results. Result diagrams: 12/27/20 13:21 12/27/20 13:21 Labs: Lab Results 12/27/20 12/27/20 12/27/20 Range/Units 11:35 13:21 13:21 WBC 7.9 (4.5-11.0) X10^3/uL RBC 3.78 L (4.5-5.9) X10^6/uL Hgb 13.6 (13.5-17.5) g/dL Hct 40.0 L (41-53) % MCV 105.7 H (80-100) fL MCH 36.1 H (26-34) PG MCHC 34.1 (30-36) % RDW 15.2 H (11.6-14.8) % Plt Count 133 L (150-400) X10^3/uL Neut % (Auto) 77.2 H (50-75) % Lymph % (Auto) 10.9 L (25-40) % Harding % (Auto) 10.0 (3-14) % Eos % (Auto) 1.2 L (2-4) % Baso % (Auto) 0.7 (0-2) % Neut # (Auto) 6100 (2481-0583) /uL Lymph # (Auto) 900 L (5395-8474) /uL Harding # (Auto) 800 (0-900) /uL Eos # (Auto) 100 (0-450) /uL Baso # (Auto) 100 (0-100) /uL Sodium 141 (137-145) mmol/L Potassium 4.3 (3.4-5.1) mmol/L Chloride 106 (98-107) mmol/L Carbon Dioxide 28 (22-32) mmol/L BUN 17 (9-20) mg/dL Creatinine 0.67 (0.66-1.25) mg/dL Estimated GFR > 60.0 (>60) mL/min BUN/Creatinine Ratio 25.4 H (6-22) Glucose 82 (80-110) mg/dL Calcium 9.8 (8.4-10.2) mg/dL Total Bilirubin 0.7 (0.2-1.3) mg/dL AST 85 H (17-59) IU/L ALT 37 (<50) IU/L Alkaline Phosphatase 133 H (38-126) U/L Total Creatine Kinase 159 (55-170) U/L CK-MB (CK-2) 4.23 H (<2.37) ng/mL CK-MB (CK-2) Rel Index 2.7 (1.5-5.0) % Troponin I < 0.012 (0.01-0.034) ng/mL Total Protein 7.1 (6.3-8.2) g/dL Albumin 4.1 (3.5-5.0) g/dL Globulin 3.0 (1.7-4.1) g/dL Albumin/Globulin Ratio 1.4 (1.0-2.8) Lipase 46 D (23-300) U/L SARS-CoV-2 (PCR) Negative (Negative) Imaging Data CT scan - abdomen/pelvis: Radiologist's Impression: [address] Scan ReportSigned Patient: Charanjit Birmingham LMR#: [id number]: 8Acct:[id number]/Sex: 60 / MDate of Service: 12/27/20Loc: EDAccession Number: [id number] Procedure: CT abdomen pelvis w con Ordering Provider: Randall Austin MD PROCEDURE: CT ABDOMEN PELVIS W CON INDICATIONS: IV contrast only/abdominal pain/vomiting TECHNIQUE: After the administration of intravenous contrast, 5 mm thick sections acquired from the diaphragm to the symphysis. 5 mm coronal and sagittal reformats were acquired. For radiation dose reduction, the following was used: automated exposure control, adjustment of mA and/or kV according to patient size. COMPARISON: [facility], CT, CT ABD PELVIS W CON, 08/24/2016, 13:57. [facility], CT, CT ABDOMEN PELVIS W CON, 11/27/2019, 10:53. [facility], CT, ABDOMEN/PELVIS WITH CONTRAST, 06/06/2013, 12:59. FINDINGS: Image quality: Excellent. ABDOMEN: Lung bases: Lung bases are clear. Heart size is normal. Solid organs: Liver is normal in size and enhancement. Several scattered punctate calcifications are seen at the right posterior hepatic segment perhaps reflecting old granulomatous infection in this area. The liver appears moderately fatty infiltrated. Gallbladder appears normal except for 1 faintly calcified gallstone layering dependently measuring only approximately 2 mm. . Biliary system is non dilated. Pancreas enhances normally. Spleen is normal in size and enhancement. No adrenal nodules. Kidneys demonstrate normal size and enhancement, without hydronephrosis. Peritoneum and bowel: Bowel loops demonstrate normal wall thickness and caliber. No free fluid or air. Nodes and vessels: No retroperitoneal or mesenteric adenopathy by size criter ia. Aorta and inferior vena cava are normal in size. Miscellaneous: No ventral hernias. PELVIS: Genitourinary: Bladder wall thickness is normal except for mild asymmetric thickening on the right at the mid bladder level. A discrete mass is not seen.. Miscellaneous: No inguinal hernias or adenopathy. Bones: No suspicious bony lesions. No vertebral body compression fractures. IMPRESSION: Source of abdominal pain and emesis is not identified. Note is made of a single 2 mm gallstone within the gallbladder lumen and slight asymmetric thickening of the right lateral bladder margin. Fatty infiltration within the liver, focal right posterior hepatic segment punctate calcifications within the liver parenchyma most likely reflect prior granulomatous infection in this area. Sign report Dictated by: Frederic Birmingham M.D. on 12/27/2020 at 14:57 Approved by: Frederic Birmingham M.D. on 12/27/2020 at 15:04 Chest x-ray: Radiologist's Impression: [address] [id number] ReportSigned Patient: Charanjit Birmingham LMR#: [id number]: 8Acct:[id number]/Sex: 60 / MDate of Service: 12/27/20Loc: EDAccession Number: [id number] Procedure: XR chest 1V Ordering Provider: Randall Austin MD PROCEDURE: XR CHEST 1V INDICATIONS: Right-sided chest pain TECHNIQUE: One view of the chest was acquired. COMPARISON: [facility], CR, XR CHEST 1 VIEW, 09/01/2020, 15:47. [facility], CR, XR CHEST 2V, 05/23/2020, 12:30. [facility], CR, XR CHEST 2V, 01/26/2020, 10:19. [facility], CR, XR CHEST 2V, 12/18/2019, 9:28. [facility], CR, XR CHEST 1V, 09/01/2020, 9:42. FINDINGS: Surgical changes and devices: None. Lungs and pleura: Lungs are clear. No pleural effusions or pneumothorax. Mediastinum: Mediastinal contours appear normal. Heart size is normal. Bones and chest wall: No suspicious bony lesions. Overlying soft tissues appear unremarkable. IMPRESSION: No acute cardiopulmonary disease. Dictated by: Crissy Beckman M.D. on 12/27/2020 at 13:57 Approved by: Crissy Beckman M.D. on 12/27/2020 at 13:58 ECG Data Attestation: I personally reviewed and interpreted this ECG as follows: Interpretation: Normal sinus rhythm, rate 79, no ST elevation. EKG unchanged from November 27, 2019 at 10:26 a.m. [facility] Narrative Medical decision making narrative: Appropriate discharge home. Patient had reproducible right-sided chest pain with vomiting. Likely strain. EKG unchanged. Troponin negative. Patient felt much better after treatment. Desires discharge home. No vomiting. Discharge Plan Departure Patient Disposition: Home Clinical Impression: Nausea & vomiting Qualifiers: Vomiting type: unspecified Vomiting Intractability: non-intractable Qualified Code(s): R11.2 - Nausea with vomiting, unspecified Instructions: DI for Nausea -- Adult Activity Restrictions/Additional Instructions: Keep well hydrated. Call Dr. Patel office tomorrow for office time for re- evaluation and scheduling for ultrasound the gallbladder or HIDA scan of the gallbladder. No fried fatty greasy foods. Return if worse or if any questions or concerns. Nausea medication has been sent to your [facility] in [facility] Prescriptions: New ondansetron 4 mg tablet,disintegrating 4 mg PO Q8H PRN (Reason: nausea and vomiting) Qty: 10 RF: 0 No Action Advair HFA 230-21 mcg/actuation HFA aerosol inhaler 2 puff INHALATION BID Qty: 12 RF: 3 aspirin 81 MG tablet,chewable 81 mg PO QDAY Qty: 90 RF: 3 Combivent Respimat 20-100 mcg/actuation mist 1 puff Inhalation QID Qty: 4 RF: 12 insulin glargine 100 unit/mL (3 mL) insulin pen 35 unit SUBCUT DAILY Qty: 15 RF: 3 folic acid 1 mg tablet 1 mg PO QDAY Qty: 90 RF: 3 gabapentin [Neurontin] 300 mg capsule 600 mg PO QHS Qty: 60 RF: 12 glipizide [Glucotrol] 10 mg tablet 10 mg PO QDAY Qty: 90 RF: 3 lisinopril 5 mg tablet 5 mg PO QDAY Qty: 90 RF: 3 simvastatin [Zocor] 20 mg tablet 20 mg PO HS Qty: 90 RF: 3 albuterol sulfate 2.5 mg /3 mL (0.083 %) solution for nebulization 2.5 mg INHALATION Q4-6H PRN (Reason: shortness of breath or wheezing) Qty: 360 RF: 1 Referrals: Tara Patel MD [Physician] - Bing Candelaria DO [Primary Care Provider] -
[2020-12-27 13:28] LABS: Add Manual Diff / Slide Review NO; Basophils Absolute Auto 100 /uL (0-100); Basophils Percent Auto 0.7 % (0-2); Eosinophils Absolute Auto 100 /uL (0-450); Eosinophils Percent Auto 1.2 % (2-4); Hemoglobin 13.6 g/dL (13.5-17.5); Lymphocytes Absolute Auto 900 /uL (1100-4500); Lymphocytes Percent Auto 10.9 % (25-40); Mean Corpuscular HGB Conc 34.1 % (30-36); Mean Corpuscular Hemoglobin 36.1 PG (26-34); Mean Corpuscular Volume 105.7 fL (80-100); Monocytes Absolute Auto 800 /uL (0-900); Neutrophils Absolute Auto 6100 /uL (1500-7000); Neutrophils Percent Auto 77.2 % (50-75); Platelet Count 133 X10^3/uL (150-400); Red Blood Cell Count 3.78 X10^6/uL (4.5-5.9); Red Cell Distribution Width 15.2 % (11.6-14.8); White Blood Cell Count 7.9 X10^3/uL (4.5-11.0)
[2020-12-27 13:30] VITALS: PULSE 83; RESP 24; O2SAT 97
[2020-12-27 13:38] LABS: HEMOLYSIS < 15 (0-50)
[2020-12-27 13:42] LABS: Alanine Aminotransferase 37 IU/L (<50); Albumin 4.1 g/dL (3.5-5.0); Albumin Globulin Ratio 1.4 (1.0-2.8); Alkaline Phosphatase 133 U/L (38-126); Aspartate Aminotransferase 85 IU/L (17-59); BUN Creatinine Ratio 25.4 (6-22); Bilirubin Total 0.7 mg/dL (0.2-1.3); Blood Urea Nitrogen 17 mg/dL (9-20); Calcium 9.8 mg/dL (8.4-10.2); Carbon Dioxide 28 mmol/L (22-32); Chloride 106 mmol/L (98-107); Creatine Kinase 159 U/L (55-170); Estimated Glomerular Filt Rate > 60.0 mL/min (>60); Glucose 82 mg/dL (80-110); Lipase 46 U/L (23-300); Potassium 4.3 mmol/L (3.4-5.1); Sodium 141 mmol/L (137-145); Total Protein 7.1 g/dL (6.3-8.2)
[2020-12-27 13:57] LABS: Troponin I < 0.012 ng/mL (0.01-0.034)
[2020-12-27 13:58] LABS: CKMB % Relative Index 2.7 % (1.5-5.0); Creatine Kinase MB 4.23 ng/mL (<2.37)
[2020-12-27 14:00] VITALS: PULSE 85; RESP 18; O2SAT 96
--- NOTE | 2020-12-27 14:32 | DI.CT.S_ITS ---
PROCEDURE: CT ABDOMEN PELVIS W CON INDICATIONS: IV contrast only/abdominal pain/vomiting TECHNIQUE: After the administration of intravenous contrast, 5 mm thick sections acquired from the diaphragm to the symphysis. 5 mm coronal and sagittal reformats were acquired. For radiation dose reduction, the following was used: automated exposure control, adjustment of mA and/or kV according to patient size. COMPARISON: [facility], CT, CT ABD PELVIS W CON, 08/24/2016, 13:57. [facility], CT, CT ABDOMEN PELVIS W CON, 11/27/2019, 10:53. [facility], CT, ABDOMEN/PELVIS WITH CONTRAST, 06/06/2013, 12:59. FINDINGS: Image quality: Excellent. ABDOMEN: Lung bases: Lung bases are clear. Heart size is normal. Solid organs: Liver is normal in size and enhancement. Several scattered punctate calcifications are seen at the right posterior hepatic segment perhaps reflecting old granulomatous infection in this area. The liver appears moderately fatty infiltrated. Gallbladder appears normal except for 1 faintly calcified gallstone layering dependently measuring only approximately 2 mm. . Biliary system is non dilated. Pancreas enhances normally. Spleen is normal in size and enhancement. No adrenal nodules. Kidneys demonstrate normal size and enhancement, without hydronephrosis. Peritoneum and bowel: Bowel loops demonstrate normal wall thickness and caliber. No free fluid or air. Nodes and vessels: No retroperitoneal or mesenteric adenopathy by size criteria. Aorta and inferior vena cava are normal in size. Miscellaneous: No ventral hernias. PELVIS: Genitourinary: Bladder wall thickness is normal except for mild asymmetric thickening on the right at the mid bladder level. A discrete mass is not seen.. Miscellaneous: No inguinal hernias or adenopathy. Bones: No suspicious bony lesions. No vertebral body compression fractures. IMPRESSION: Source of abdominal pain and emesis is not identified. Note is made of a single 2 mm gallstone within the gallbladder lumen and slight asymmetric thickening of the right lateral bladder margin. Fatty infiltration within the liver, focal right posterior hepatic segment punctate calcifications within the liver parenchyma most likely reflect prior granulomatous infection in this area. Sign report Dictated by: Frederic Birmingham M.D. on 12/27/2020 at 14:57 Approved by: Frederic Birmingham M.D. on 12/27/2020 at 15:04
== END 2020-12-27 15:55 | disposition home or self-care (01) ==
PROVIDERS: Emergency Provider Emergency Medicine; PCP Family Medicine
DX: R11.2 Nausea with vomiting, unspecified (principal); R07.9 Chest pain, unspecified; E11.9 Type 2 diabetes mellitus without complications; Z79.4 Long term (current) use of insulin; Z20.822 Contact with and (suspected) exposure to COVID-19
CPT/HCPCS: 36415; 71045; 74177; 80053; 82550; 82553; 83690; 84484; 85025; 87635; 93005; 99283; 99284; C9803

== ENCOUNTER 2021-01-02 07:59 | Emergency (ER) | payer MEDICARE, MEDICAID, SELFPAY ==
[2020-05-23 16:24] VITALS: BMI 28.5
[2021-01-02] VITALS (8 sets, daily range): BP systolic 115–158; BP diastolic 64–75; PULSE 84–109; RESP 16–24; TEMP 36.4; O2SAT 96–98; BMI 28.8
--- NOTE | 2021-01-02 08:03 | ED.SOB ---
HPI - SOB/Dyspnea General Chief Complaint: Shortness of Breath/Dyspnea Stated Complaint: shortness of breath, no known exp to Covid Time Seen by Provider: 01/02/21 08:03 Source: patient Mode of arrival: Ambulatory Limitations: no limitations History of Present Illness HPI Narrative: 60-year-old male daily smoker with history of COPD presents with increasing shortness of breath cough and some chills. He states the shortness of breath has been present for quite some time but feels like it is a bit worse over the past few days. He denies any measured fever but has had chills, as stated. His shortness of breath is worse with exertion. He denies using oxygen at home. He denies any orthopnea or weight gain. He has had no chest pain, dizziness or lightheadedness. He denies any nausea, vomiting or diarrhea. He denies any dysuria, frequency or urgency. He states his last hospitalization was quite a long time ago. He denies any min new medications or dietary change. He states his normal inhalers haven't been working as well MD Complaint: shortness of breath and cough Onset (ago): month(s) Severity: moderate Consistency/Duration: constant Relieving factors: rest Exacerbating factors: exertion Known history of: COPD Associated symptoms: cough and sputum production Treatment prior to arrival: bronchodilator Related Data Home oxygen amount: none Previous Rx's Medication Instructions Recorded aspirin 81 mg PO QDAY #90 ctb 12/17/16 ipratropium 20 mcg-albuterol 100 1 puff INHALATION QID #4 gram 02/01/20 mcg/actuation mist for inhalation insulin glargine 100 unit/mL (3 35 unit SUBCUT DAILY #15 ml 05/24/20 mL) subcutaneous pen folic acid 1 mg tablet 1 mg PO QDAY #90 tab 06/01/20 gabapentin 300 mg capsule 600 mg PO QHS #60 cap 06/01/20 glipizide 10 mg tablet 10 mg PO QDAY #90 tab 06/01/20 lisinopril 5 mg tablet 5 mg PO QDAY #90 tab 06/01/20 simvastatin 20 mg tablet 20 mg PO HS #90 tab 06/01/20 albuterol sulfate 2.5 mg INHALATION Q4-6H PRN #360 ml 06/09/20 fluticasone propionate 230 2 puff INHALATION BID #12 gram 08/09/20 mcg-salmeterol 21 mcg/actuation HFA inhaler ondansetron 4 mg PO Q8H PRN #10 tab 12/27/20 doxycycline hyclate 100 mg PO BID #20 tab 01/02/21 prednisone 20 mg PO DAILY #5 tab 01/02/21 Allergies Allergy/AdvReac Type Severity Reaction Status Date / Time Stow And Derivatives Allergy Severe hives Verified 09/01/20 09:23 [CITRUS AND DERIVATIVES] chocolate flavor Allergy Intermediate HIVES Verified 09/01/20 09:23 [CHOCOLATE FLAVOR] codeine [CODEINE] AdvReac Intermediate NAUSEA Verified 09/01/20 09:23 Review of Systems Constitutional Constitutional: Reports chills, Denies fatigue, Denies fever(s), Denies frequent falls, Denies lethargy and Denies weakness Eyes Eyes: Denies change in vision, Denies eye discharge, Denies irritation and Denies loss of vision ENT Ears, Nose, Mouth, and Throat: Denies change in voice, Denies dizziness, Denies neck pain, Denies sore throat and Denies throat swelling Cardiovascular Cardiovascular: Denies chest pain, Denies irregular heart rhythm, Denies lightheadedness, Denies palpitations, Reports dyspnea, Denies dyspnea on exertion and Denies orthopnea Respiratory Respiratory: Reports cough, Reports dyspnea, Denies dyspnea on exertion and Denies wheezing Gastrointestinal Gastrointestinal: Denies abdominal pain, Denies change in bowel habits, Denies diarrhea, Denies nausea and Denies vomiting Musculoskeletal Musculoskeletal: Denies neck pain and Denies numbness Integumentary/Breasts Skin/Breast: Denies pruritus, Denies erythema, Denies rash and Denies wounds Neurologic Neurologic: Denies behavioral changes, Denies confusion, Denies dizziness, Denies frequent falls, Denies loss of vision, Denies numbness and Denies weakness Psychiatric Psychiatric: Denies anxiety, Denies behavioral changes, Denies confusion, Denies depression, Denies homicidal ideation and Denies suicidal ideation Endocrine Endocrine: Denies fatigue, Denies flushing and Denies palpitations Hematologic/Lymphatic Hematologic/Lymphatic: Denies easy bruising Allergic/Immunologic Allergic/Immunologic: Denies urticaria, Denies throat swelling and Denies wheezing Patient History Medical History (Updated 01/02/21 @ 10:29 by Ezequiel Garcia DO) Alcoholism C7 radiculopathy Colon polyps Diabetes mellitus type 2, insulin dependent Diabetic neuropathy Type 2 diabetes mellitus with complications Surgical History History of partial colectomy History of prostatectomy S/P hernia repair Family History Mother Colon cancer Social History marital status: unmarried,single number of children: 0 household members: family lives independently: Yes education level: high school occupational status: unemployed and disabled Smoking Status: Current every day smoker alcohol intake: current substance use type: does not use Smoking Status: Current every day smoker tobacco type: cigarettes alcohol intake frequency: 0-2 drinks per day Alcohol type: hard liquor Substance Use Type: does not use Exam Narrative Exam Narrative: GENERAL: [60] year old patient appears older than stated age. Well-nourished, well-developed patient, in mild distress. HEAD: Atraumatic. Normocephalic. EYES: Pupils equal round and reactive. Extraocular motions intact. No scleral icterus. No injection or drainage. ENT: Nose without bleeding, purulent drainage. Throat without erythema, tonsillar hypertrophy or exudate. Airway patent. NECK: Trachea midline. Non tender CARDIOVASCULAR: Regular rate and rhythm without murmurs, gallops, or rubs. RESPIRATORY: Decreased breath sounds throughout, prolonged expiratory phase, no rales or rhonchi GASTROINTESTINAL: Abdomen soft, non-tender, nondistended. EXTREMITIES: No edema or joint tenderness. BACK: Nontender without deformity or crepitance. No flank tenderness. NEURO: AOx3. SKIN: No rash or erythema of visible areas Initial Vital Signs Initial Vital Signs: Vital Signs Temperature 97.5 F L 01/02/21 08:08 Pulse Rate 99 H 01/02/21 08:08 Respiratory Rate 24 01/02/21 08:08 Blood Pressure 143/75 H 01/02/21 08:08 Pulse Oximetry 96 01/02/21 08:08 Course Course Course Narrative: patient states he fell a few days or weeks ago and has had worsening head and neck pain since the fall. He did hit his head. He denies that he lost LOC. He denies focal neurologic findings. Orders Ordered: Discontinued Medications Albuterol/Ipratropium (Albuterol/Ipratropium 3 Ml Ampul) 3 ml INH NOW ONE Stop: 01/02/21 08:45 Last Admin: 01/02/21 08:47 Dose: 3 ml Documented by: VICTORINA Sodium Chloride (Normal Saline 0.9%) 1,000 mls @ 125 mls/hr IV CONT PIA Last Infusion: 01/02/21 10:30 Dose: 0 mls/hr Documented by: Infusion: 01/02/21 10:26 Dose: 125 mls/hr Documented by: MARIOONEPeng Admin: 01/02/21 08:25 Dose: 125 mls/hr Documented by: MARIOONEPeng Methylprednisolone (Methylprednisolone 125 Mg/2 Ml Vial) 125 mg IV NOW ONE Stop: 01/02/21 08:07 Last Admin: 01/02/21 08:25 Dose: 125 mg Documented by: FLAQUITA Vital Signs Vital signs: Vital Signs - 8 hr 01/02/21 08:08 01/02/21 08:31 01/02/21 08:52 Temperature 97.5 F L Pulse Rate 99 H 87 109 H Respiratory Rate 24 16 24 Blood Pressure 143/75 H 115/69 Pulse Oximetry 96 97 98 01/02/21 09:03 Temperature Pulse Rate 87 Respiratory Rate 21 Blood Pressure 144/67 H Pulse Oximetry 96 MDM - SOB/Dyspnea Lab Data Result diagrams: 01/02/21 08:23 01/02/21 08:23 Labs: Lab Results 01/02/21 01/02/21 01/02/21 Range/Units 08:10 08:23 08:23 WBC 5.8 (4.5-11.0) X10^3/uL RBC 3.88 L (4.5-5.9) X10^6/uL Hgb 14.0 (13.5-17.5) g/dL Hct 40.8 L (41-53) % MCV 105.4 H (80-100) fL MCH 36.1 H (26-34) PG MCHC 34.2 (30-36) % RDW 15.1 H (11.6-14.8) % Plt Count 151 (150-400) X10^3/uL Neut % (Auto) 71.9 (50-75) % Lymph % (Auto) 12.2 L (25-40) % Vernon % (Auto) 12.6 (3-14) % Eos % (Auto) 2.6 (2-4) % Baso % (Auto) 0.7 (0-2) % Neut # (Auto) 4200 (5570-5574) /uL Lymph # (Auto) 700 L (6597-1031) /uL Vernon # (Auto) 700 (0-900) /uL Eos # (Auto) 200 (0-450) /uL Baso # (Auto) 0 (0-100) /uL Sodium 137 (137-145) mmol/L Potassium 3.5 (3.4-5.1) mmol/L Chloride 102 (98-107) mmol/L Carbon Dioxide 28 (22-32) mmol/L BUN 15 (9-20) mg/dL Creatinine 0.69 (0.66-1.25) mg/dL Estimated GFR > 60.0 (>60) mL/min BUN/Creatinine Ratio 21.7 (6-22) Glucose 77 L (80-110) mg/dL Lactate (0.7-2.1) mmol/L Calcium 9.5 (8.4-10.2) mg/dL Magnesium (1.6-2.3) mg/dL Total Bilirubin 1.1 (0.2-1.3) mg/dL AST 103 H (17-59) IU/L ALT 37 (<50) IU/L Alkaline Phosphatase 146 H (38-126) U/L Total Creatine Kinase (55-170) U/L CK-MB (CK-2) (<2.37) ng/mL CK-MB (CK-2) Rel Index (1.5-5.0) % Troponin I (0.01-0.034) ng/mL NT-Pro-B Natriuret Pep (<125) pg/mL Total Protein 7.3 (6.3-8.2) g/dL Albumin 4.0 (3.5-5.0) g/dL Globulin 3.3 (1.7-4.1) g/dL Albumin/Globulin Ratio 1.2 (1.0-2.8) SARS-CoV-2 (PCR) Negative (Negative) 01/02/21 01/02/21 Range/Units 08:23 08:23 WBC (4.5-11.0) X10^3/uL RBC (4.5-5.9) X10^6/uL Hgb (13.5-17.5) g/dL Hct (41-53) % MCV (80-100) fL MCH (26-34) PG MCHC (30-36) % RDW (11.6-14.8) % Plt Count (150-400) X10^3/uL Neut % (Auto) (50-75) % Lymph % (Auto) (25-40) % Vernon % (Auto) (3-14) % Eos % (Auto) (2-4) % Baso % (Auto) (0-2) % Neut # (Auto) (1005-3891) /uL Lymph # (Auto) (2311-6302) /uL Vernon # (Auto) (0-900) /uL Eos # (Auto) (0-450) /uL Baso # (Auto) (0-100) /uL Sodium (137-145) mmol/L Potassium (3.4-5.1) mmol/L Chloride (98-107) mmol/L Carbon Dioxide (22-32) mmol/L BUN (9-20) mg/dL Creatinine (0.66-1.25) mg/dL Estimated GFR (>60) mL/min BUN/Creatinine Ratio (6-22) Glucose (80-110) mg/dL Lactate 2.7 H (0.7-2.1) mmol/L Calcium (8.4-10.2) mg/dL Magnesium 1.3 L (1.6-2.3) mg/dL Total Bilirubin (0.2-1.3) mg/dL AST (17-59) IU/L ALT (<50) IU/L Alkaline Phosphatase (38-126) U/L Total Creatine Kinase 190 H (55-170) U/L CK-MB (CK-2) 4.64 H (<2.37) ng/mL CK-MB (CK-2) Rel Index 2.4 (1.5-5.0) % Troponin I 0.014 (0.01-0.034) ng/mL NT-Pro-B Natriuret Pep 134 H (<125) pg/mL Total Protein (6.3-8.2) g/dL Albumin (3.5-5.0) g/dL Globulin (1.7-4.1) g/dL Albumin/Globulin Ratio (1.0-2.8) SARS-CoV-2 (PCR) (Negative) Imaging Data Chest x-ray: Radiologist's Impression: Charanjit [place] 60 M [address] [id number] ReportSigned Patient: Charanjit [place] LMR#: [id number]: 1960cct:[id number]/Sex: 60 / MDate of Service: 01/02/21Loc: EDAccession Number: [id number] Procedure: XR chest 1V Ordering Provider: Ezequiel Garcia D.O. PROCEDURE: XR CHEST 1V INDICATIONS: SOB, fever, chills TECHNIQUE: One view of the chest was acquired. COMPARISON: [facility], , XR CHEST 1V, 12/27/2020, 13:14. FINDINGS: Surgical changes and devices: None. Lungs and pleura: Lungs are clear. No pleural effusions or pneumothorax. Mediastinum: Mediastinal contours appear normal. Heart size is normal. Bones and chest wall: No suspicious bony lesions. Overlying soft tissues appear unremarkable. IMPRESSION: No acute process. Dictated by: Catracho Sarah M.D. on 01/02/2021 at 8:50 Approved by: Catracho Sarah M.D. on 01/02/2021 at 8:51 CT scan - head: Radiologist's Impression: [address] [id number] Scan ReportSigned Patient: Charanjit [place] LMR#: [id number]: 1960cct:[id number]/Sex: 60 / MDate of Service: 01/02/21Loc: EDAccession Number: [id number] Procedure: CT head/brain wo con Ordering Provider: Ezequiel Garcia D.O. PROCEDURE: CT HEAD/BRAIN WO CON INDICATIONS: fall with head injury / pain TECHNIQUE: Noncontrast 4.5 mm thick angled axial sections acquired from the foramen magnum to the vertex, with coronal and sagittal reformats. For radiation dose reduction, the following was used: automated exposure control, adjustment of mA and/or kV according to patient size. COMPARISON: None. FINDINGS: Image quality: Excellent. CSF spaces: Basal cisterns are patent. No extra-axial fluid collections. Ventricles are normal in size and shape. Brain: No midline shift. No intracranial masses or hemorrhage. Etienne-white matter interface is normal. Skull and face: Calvarium and visualized facial bones are intact, without suspicious lesions. Sinuses: Visualized sinuses and mastoids are clear. IMPRESSION: No acute intracranial process. Dictated by: Al Monteiro M.D. on 01/02/2021 at 9:42 Approved by: Al Monteiro M.D. on 01/02/2021 at 9:43 CT - cervical spine: Radiologist's Impression: [address] [id number] Scan ReportSigned Patient: Charanjit [place] LMR#: [id number]: 8Acct:[id number]/Sex: 60 / MDate of Service: 01/02/21Loc: EDAccession Number: [id number] Procedure: CT cervical spine wo con Ordering Provider: Ezequiel Garcia D.O. PROCEDURE: CT CERVICAL SPINE WO CON INDICATIONS: fall many days ago with neck pain TECHNIQUE: Noncontrast 3 mm thick sections acquired from the skull base to the T4 level. Sagittal and coronal reformats were then constructed. For radiation dose reduction, the following was used: automated exposure control, adjustment of mA and/or kV according to patient size. COMPARISON: None. FINDINGS: Image quality: Excellent. Bones: No fractures or dislocations. Extensive cervical spine degenerative changes, overall moderate. Visualized superior ribs are intact. Soft tissues: Prevertebral soft tissues are normal in thickness. No paravertebral hematomas. No apical pneumothoraces. IMPRESSION: No CT evidence of acute traumatic cervical spine injury. Dictated by: Al Monteiro M.D. on 01/02/2021 at 9:43 Approved by: Al Monteiro M.D. on 01/02/2021 at 9:45 ECG Data Attestation: I personally reviewed and interpreted this ECG as follows: Prior ECG tracings: available for review Interpretation: EKG is normal sinus rhythm rate [97] and free of any signs of ischemia or ectopy. No ST segmental elevation or depression. No T wave inversions. 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 No signs of sepsis. Doing well, requesting DC. Return precautions given. Questions answered to his apparent satisfaction. Discharge Plan Departure Patient Disposition: Home Clinical Impression: COPD with acute bronchitis, Atypical pneumonia Instructions: Chronic Obstructive Pulmonary Disease, DI for Atypical Pneumonia Activity Restrictions/Additional Instructions: *You have been diagnosed with [exacerbation of COPD with atypical pneumonia. Chest Xray looked good and your labs were not significantly abnormal. *What to do: *Take medications as directed: [facility] [place] *Follow up with your primary care provider in 2-3 days, call for an appointment. Let them know you were seen in the Emergency Department and that we ask that you be seen in follow up *Return to ER if you should have any new, worsening or concerning symptoms Prescriptions: New prednisone 20 mg tablet 20 mg PO DAILY Qty: 5 RF: 0 doxycycline hyclate 100 mg tablet 100 mg PO BID Qty: 20 RF: 0 No Action Advair HFA 230-21 mcg/actuation HFA aerosol inhaler 2 puff INHALATION BID Qty: 12 RF: 3 aspirin 81 MG tablet,chewable 81 mg PO QDAY Qty: 90 RF: 3 Combivent Respimat 20-100 mcg/actuation mist 1 puff Inhalation QID Qty: 4 RF: 12 insulin glargine 100 unit/mL (3 mL) insulin pen 35 unit SUBCUT DAILY Qty: 15 RF: 3 folic acid 1 mg tablet 1 mg PO QDAY Qty: 90 RF: 3 gabapentin [Neurontin] 300 mg capsule 600 mg PO QHS Qty: 60 RF: 12 glipizide [Glucotrol] 10 mg tablet 10 mg PO QDAY Qty: 90 RF: 3 lisinopril 5 mg tablet 5 mg PO QDAY Qty: 90 RF: 3 simvastatin [Zocor] 20 mg tablet 20 mg PO HS Qty: 90 RF: 3 albuterol sulfate 2.5 mg /3 mL (0.083 %) solution for nebulization 2.5 mg INHALATION Q4-6H PRN (Reason: shortness of breath or wheezing) Qty: 360 RF: 1 ondansetron 4 mg tablet,disintegrating 4 mg PO Q8H PRN (Reason: nausea and vomiting) Qty: 10 RF: 0 Referrals: Bing Candelaria DO [Primary Care Provider] -
--- NOTE | 2021-01-02 08:07 | DI.RAD.S_ITS ---
PROCEDURE: XR CHEST 1V INDICATIONS: SOB, fever, chills TECHNIQUE: One view of the chest was acquired. COMPARISON: [facility], CR, XR CHEST 1V, 12/27/2020, 13:14. FINDINGS: Surgical changes and devices: None. Lungs and pleura: Lungs are clear. No pleural effusions or pneumothorax. Mediastinum: Mediastinal contours appear normal. Heart size is normal. Bones and chest wall: No suspicious bony lesions. Overlying soft tissues appear unremarkable. IMPRESSION: No acute process. Dictated by: Catracho Sarah M.D. on 01/02/2021 at 8:50 Approved by: Catracho Sarah M.D. on 01/02/2021 at 8:51
[2021-01-02] MEDS: methylPREDNISolone 125 MG/2 ML VIAL IV (08:25)
[2021-01-02] MEDS: SODIUM CHLORIDE 0.9% 1,000 ML 125 ML IV (08:25)
[2021-01-02 08:34] LABS: COVID19 -Nasal RAPID Negative (Negative)
[2021-01-02 08:38] LABS: Add Manual Diff / Slide Review NO; Basophils Absolute Auto 0 /uL (0-100); Basophils Percent Auto 0.7 % (0-2); Eosinophils Absolute Auto 200 /uL (0-450); Eosinophils Percent Auto 2.6 % (2-4); Hematocrit 40.8 % (41-53); Lymphocytes Absolute Auto 700 /uL (1100-4500); Lymphocytes Percent Auto 12.2 % (25-40); Mean Corpuscular HGB Conc 34.2 % (30-36); Mean Corpuscular Hemoglobin 36.1 PG (26-34); Mean Corpuscular Volume 105.4 fL (80-100); Monocytes Absolute Auto 700 /uL (0-900); Monocytes Percent Auto 12.6 % (3-14); Neutrophils Absolute Auto 4200 /uL (1500-7000); Neutrophils Percent Auto 71.9 % (50-75); Platelet Count 151 X10^3/uL (150-400); Red Blood Cell Count 3.88 X10^6/uL (4.5-5.9); Red Cell Distribution Width 15.1 % (11.6-14.8); White Blood Cell Count 5.8 X10^3/uL (4.5-11.0)
[2021-01-02 08:42] LABS: Creatine Kinase 190 U/L (55-170); Magnesium 1.3 mg/dL (1.6-2.3)
[2021-01-02 08:43] LABS: Alanine Aminotransferase 37 IU/L (<50); Albumin Globulin Ratio 1.2 (1.0-2.8); Alkaline Phosphatase 146 U/L (38-126); Aspartate Aminotransferase 103 IU/L (17-59); BUN Creatinine Ratio 21.7 (6-22); Bilirubin Total 1.1 mg/dL (0.2-1.3); Blood Urea Nitrogen 15 mg/dL (9-20); Calcium 9.5 mg/dL (8.4-10.2); Carbon Dioxide 28 mmol/L (22-32); Chloride 102 mmol/L (98-107); Estimated Glomerular Filt Rate > 60.0 mL/min (>60); Globulin 3.3 g/dL (1.7-4.1); Glucose 77 mg/dL (80-110); HEMOLYSIS < 15 (0-50); Potassium 3.5 mmol/L (3.4-5.1); Sodium 137 mmol/L (137-145); Total Protein 7.3 g/dL (6.3-8.2)
[2021-01-02 08:44] LABS: Lactate (Lactic Acid) 2.7 mmol/L (0.7-2.1)
[2021-01-02] MEDS: ALBUTEROL/IPRATROPIUM 3 ML AMPUL INH (08:47)
[2021-01-02 08:56] LABS: NT-proBNP (BNP-Adult 18+) 134 pg/mL (<125); Troponin I 0.014 ng/mL (0.01-0.034)
[2021-01-02 08:57] LABS: CKMB % Relative Index 2.4 % (1.5-5.0); Creatine Kinase MB 4.64 ng/mL (<2.37)
--- NOTE | 2021-01-02 09:06 | DI.CT.S_ITS ---
PROCEDURE: CT HEAD/BRAIN WO CON INDICATIONS: fall with head injury / pain TECHNIQUE: Noncontrast 4.5 mm thick angled axial sections acquired from the foramen magnum to the vertex, with coronal and sagittal reformats. For radiation dose reduction, the following was used: automated exposure control, adjustment of mA and/or kV according to patient size. COMPARISON: None. FINDINGS: Image quality: Excellent. CSF spaces: Basal cisterns are patent. No extra-axial fluid collections. Ventricles are normal in size and shape. Brain: No midline shift. No intracranial masses or hemorrhage. Etienne-white matter interface is normal. Skull and face: Calvarium and visualized facial bones are intact, without suspicious lesions. Sinuses: Visualized sinuses and mastoids are clear. IMPRESSION: No acute intracranial process. Dictated by: Al Monteiro M.D. on 01/02/2021 at 9:42 Approved by: Al Monteiro M.D. on 01/02/2021 at 9:43
--- NOTE | 2021-01-02 09:06 | DI.CT.S_ITS ---
PROCEDURE: CT CERVICAL SPINE WO CON INDICATIONS: fall many days ago with neck pain TECHNIQUE: Noncontrast 3 mm thick sections acquired from the skull base to the T4 level. Sagittal and coronal reformats were then constructed. For radiation dose reduction, the following was used: automated exposure control, adjustment of mA and/or kV according to patient size. COMPARISON: None. FINDINGS: Image quality: Excellent. Bones: No fractures or dislocations. Extensive cervical spine degenerative changes, overall moderate. Visualized superior ribs are intact. Soft tissues: Prevertebral soft tissues are normal in thickness. No paravertebral hematomas. No apical pneumothoraces. IMPRESSION: No CT evidence of acute traumatic cervical spine injury. Dictated by: Al Monteiro M.D. on 01/02/2021 at 9:43 Approved by: Al Monteiro M.D. on 01/02/2021 at 9:45
[2021-01-02 10:30] LABS: Reflexed Lactate in 2 Hours Y
== END 2021-01-02 10:45 | disposition home or self-care (01) ==
PROVIDERS: Emergency Provider Emergency Medicine; PCP Family Medicine
DX: J44.0 Chronic obstructive pulmonary disease with (acute) lower respiratory infection (principal); J40 Bronchitis, not specified as acute or chronic; J18.9 Pneumonia, unspecified organism; R05 Cough; Z79.82 Long term (current) use of aspirin; S09.90XA Unspecified injury of head, initial encounter; M54.2 Cervicalgia; W19.XXXA Unspecified fall, initial encounter; Z20.822 Contact with and (suspected) exposure to COVID-19
CPT/HCPCS: 36415; 70450; 71045; 72125; 80053; 82550; 82553; 83605; 83735; 83880; 84484; 85025; 87040; 87635; 93005; 94640; 96361; 96374; 99284; C9803; J2930